=== PATIENT | female | born 1955 | race Caucasian/White ===

== ENCOUNTER → 2016-12-26 | Outpatient (CLI) | payer OTHER ==
[~2016-12-26] MED LIST: ANT25 PO; ASPCH81 PO; CALC-20 PO; LISI-461 PO; MULT-506 PO; [UNRECOGNIZED DRUG - OTHER]
[2016-12-26 13:37] LABS: BASO % 0.4 %; BASO ABS # 0.03 K/uL (0-0.2); COMPLETE YES; EOS % 1.9 %; HEMATOCRIT 41.8 % (37-47); IG% 0.1 %; LYMPH % 31.3 %; LYMPH ABS # 2.35 K/uL (1.2-3.4); MEAN CELL VOLUME 89.3 fL (80-100); MEAN CORPUSCULAR HEMOGLOBIN 30.3 pg (25-34); MEAN PLATELET VOLUME 10.6 fL (7.4-10.4); MONO % 9.9 %; NEUT % 56.4 %; PLATELET COUNT 409 K/uL (130-400); RED BLOOD COUNT 4.68 M/uL (4.2-5.4)
[2016-12-26 14:02] LABS: ESTIMATED AVERAGE GLUCOSE 123 mg/dl; HA1C FLAG Normal (Normal)
[2016-12-26 14:11] LABS: ALT/SGPT 28 U/L (12-78); BLOOD UREA NITROGEN 15 mg/dl (7-18); BUN/CREATININE RATIO 22.6 (10-20); CALCIUM 9.9 mg/dl (8.5-10.1); CARBON DIOXIDE 30 mmol/L (21-32); CHLORIDE 105 mmol/L (98-107); CHOLESTEROL 240 mg/dl (0-200); CREATININE 0.66 mg/dl (0.60-1.20); GLUCOSE 88 mg/dl (70-99); POTASSIUM 4.2 mmol/L (3.5-5.1); SODIUM 141 mmol/L (136-145); TRIGLYCERIDES 279 mg/dl (0-150); VERY LOW DENSITY LIPOPROT CALC 56 mg/dl
[2016-12-26 14:20] LABS: ALB/GLOB RATIO 1.1 (0.9-2); ALKALINE PHOSPHATASE 90 U/L (45-117); AST/SGOT 15 U/L (15-37); CHOLESTEROL/HDL RATIO 5.9; HDL CHOLESTEROL 41 mg/dl; LDL CHOLESTEROL CALCULATED 143 mg/dl
== END | disposition home or self-care (01) ==
LOC: C.LABBC 10:40
PROVIDERS: ATTEND Internal Medicine
DX: E78.1 Pure hyperglyceridemia (principal); E78.5 Hyperlipidemia, unspecified

== ENCOUNTER → 2016-12-28 | Outpatient (CLI) | payer OTHER ==
--- NOTE | 2016-12-28 08:51 | DIAGNOSTIC IMAGING REPORT ---
ABDOMEN COMPLETE (US) CLINICAL HISTORY: Epigastric pain. COMPARISON STUDY: No previous studies for comparison. FINDINGS: Hepatic echogenicity is increased. Note is made of a 6.2 x 5.1 x 5.2 cm anechoic left hepatic lobe lesion with enhanced through transmission consistent with a cyst. There is no biliary ductal dilatation status post cholecystectomy. The pancreatic body is normal. The head and tail are slightly obscured. The size of the spleen is normal. There is no hydronephrosis. No calculi or renal masses are identified by sonography. The right kidney measures 12.1 cm and the left measures 11.8 cm. Caliber of the abdominal aorta is normal. Visualized portions of the IVC are patent. IMPRESSION: 1. No biliary ductal dilatation status post cholecystectomy. 2. Fatty liver. 3. 6.2 cm left hepatic lobe cyst. 4. No hydronephrosis. Electronically signed by: Pedrito Kennedy M.D. 12/28/2016 8:50 AM Dictated Date/Time: 12/28/2016 8:47 AM
== END | disposition home or self-care (01) ==
LOC: C.ULTRBC 07:59
PROVIDERS: ATTEND Internal Medicine
DX: R10.13 Epigastric pain (principal)

== ENCOUNTER → 2017-01-14 | Outpatient (CLI) | payer OTHER ==
[~2017-01-14] MED LIST changes: +OPTIRAY 320 IV PRN
--- NOTE | 2017-01-14 10:35 | DIAGNOSTIC IMAGING REPORT ---
CT LIVER (ABDOMEN) COMBO CT DOSE: 1730.61 mGycm CLINICAL HISTORY: Mid epigastric pain. Large hepatic cyst. TECHNIQUE: Unenhanced images were obtained through the liver. The patient was scanned in a dynamic helical fashion during intravenous administration of 93 cc Optiray 320. Arterial phase and portal phase imaging was performed. COMPARISON STUDY: Abdominal ultrasound dated 12/28/2016 FINDINGS: There are mild basilar atelectatic changes. There is hepatic steatosis. There is a 6 cm left lobe hepatic cyst. There are several too small to characterize subcentimeter hypodensities within the right hepatic lobe possibly representing additional tiny cysts or biliary hamartomas. Portal vein appears patent. The gallbladder surgically absent. No splenic abnormalities are visualized. No pancreatic masses are visualized. No adrenal masses are visualized. No renal masses are visualized. The appendix appears normal. There is no evidence of abdominal aortic dilatation. IMPRESSION: 1. Hepatic steatosis 2. Surgically absent gallbladder 3. 6 cm left lobe hepatic cyst Electronically signed by: Shailesh Vazquez M.D. 01/14/2017 10:33 AM Dictated Date/Time: 01/14/2017 10:29 AM
== END | disposition home or self-care (01) ==
LOC: C.CTS 09:57
PROVIDERS: ATTEND Physician Assistant
DX: K76.89 Other specified diseases of liver (principal); R10.13 Epigastric pain; K76.0 Fatty (change of) liver, not elsewhere classified; Z90.49 Acquired absence of other specified parts of digestive tract

== ENCOUNTER → 2017-02-13 | Outpatient (CLI) | payer OTHER ==
[~2017-02-13] MED LIST changes: -OPTIRAY 320 IV PRN
--- NOTE | 2017-02-13 12:31 | DIAGNOSTIC IMAGING REPORT ---
TWO VIEW CHEST CLINICAL HISTORY: Preoperative examination. FINDINGS: PA and lateral chest radiographs are compared to study dated 01/08/2015. The cardiomediastinal silhouette is unremarkable. There is mild atherosclerotic calcification of the thoracic aorta. Chronic interstitial thickening is similar to previous. Linear atelectasis versus scarring is noted at the left lung base. The lungs and pleural spaces are otherwise clear. There is no pneumothorax. The skeletal structures are osteopenic. The bony thorax appears intact. IMPRESSION: No active disease in the chest. Electronically signed by: Tavon England M.D. 02/13/2017 12:30 PM Dictated Date/Time: 02/13/2017 12:29 PM
[2017-02-13 13:36] LABS: BASO % 0.2 %; BASO ABS # 0.02 K/uL (0-0.2); COMPLETE YES; EOS % 1.5 %; HEMATOCRIT 42.7 % (37-47); IG% 0.2 %; LYMPH % 27.6 %; LYMPH ABS # 2.24 K/uL (1.2-3.4); MEAN CELL VOLUME 90.7 fL (80-100); MEAN CORPUSCULAR HEMOGLOBIN 30.1 pg (25-34); MEAN CORPUSCULAR HGB CONC 33.3 g/dl (32-36); MEAN PLATELET VOLUME 10.2 fL (7.4-10.4); MONO % 8.3 %; NEUT % 62.2 %; PLATELET COUNT 429 K/uL (130-400); RED BLOOD COUNT 4.71 M/uL (4.2-5.4); WHITE BLOOD COUNT 8.12 K/uL (4.8-10.8)
[2017-02-13 13:54] LABS: PARTIAL THROMBOPLASTIN RATIO 1.1; PROTHROMBIN TIME (PATIENT) 10.3 SECONDS (9.0-12.0)
[2017-02-13 14:29] LABS: ALT/SGPT 29 U/L (12-78); BLOOD UREA NITROGEN 14 mg/dl (7-18); BUN/CREATININE RATIO 20.4 (10-20); CARBON DIOXIDE 28 mmol/L (21-32); CHLORIDE 105 mmol/L (98-107); CREATININE 0.67 mg/dl (0.60-1.20); GLUCOSE 86 mg/dl (70-99); MAGNESIUM 2.4 mg/dl (1.8-2.4); POTASSIUM 4.1 mmol/L (3.5-5.1); SODIUM 141 mmol/L (136-145)
[2017-02-13 14:34] LABS: ALB/GLOB RATIO 1.1 (0.9-2); ALKALINE PHOSPHATASE 95 U/L (45-117); AST/SGOT 15 U/L (15-37)
[2017-02-15 15:27] LABS: AFP TUMOR MARKER SERUM 4.2 NG/ML (<6.1)
== END | disposition home or self-care (01) ==
LOC: C.RADBC 11:54
PROVIDERS: ATTEND Specialist
DX: K76.89 Other specified diseases of liver (principal)

== ENCOUNTER → 2017-02-20 | Outpatient (CLI) | payer OTHER | END | disposition home or self-care (01) | LOC: C.CPL 08:16 | PROVIDERS: ATTEND Specialist | DX: K76.89 Other specified diseases of liver (principal) ==

== ENCOUNTER → 2017-02-20 | Outpatient (CLI) | payer OTHER ==
--- NOTE | 2017-02-20 14:10 | MAMMOGRAPHY REPORT ---
BILATERAL DIGITAL SCREENING MAMMOGRAM TOMOSYNTHESIS WITH CAD: 02/20/2017 CLINICAL HISTORY: Routine screening. Patient has no complaints. TECHNIQUE: Breast tomosynthesis in addition to standard 2D mammography was performed. Current study was also evaluated with a Computer Aided Detection (CAD) system. COMPARISON: Comparison is made to exams dated: 10/17/2015 mammogram, 10/01/2014 mammogram, 09/11/2013 mammogram, 06/26/2012 mammogram, 06/21/2011 mammogram, and 06/19/2010 mammogram - [facility] [place] . BREAST COMPOSITION: There are scattered areas of fibroglandular density in both breasts. FINDINGS: There is stable nodularity in the lateral right breast, and superior left breast. Stable grouped punctate benign-appearing microcalcifications in the lateral left breast. No new suspicious mass, architectural distortion or cluster of microcalcifications is seen. IMPRESSION: ACR BI-RADS CATEGORY 1: NEGATIVE There is no mammographic evidence of malignancy. A 1 year screening mammogram is recommended. The p atient will receive written notification of the results. Approximately 10% of breast cancers are not detected with mammography. A negative mammographic repor t should not delay biopsy if a clinically suggestive mass is present. Leela Hernandez M.D. ay/:02/20/2017 09:30:24 Advanced Manager: Brittney LUNDY)(Johan), [facility] letter sent: Normal 1/2 BI-RADS Code: ACR BI-RADS Category 1: Negative
== END | disposition home or self-care (01) ==
LOC: C.MAMM 07:34
PROVIDERS: ATTEND Internal Medicine
DX: Z12.31 Encounter for screening mammogram for malignant neoplasm of breast (principal)

== ENCOUNTER → 2017-07-31 | Outpatient (CLI) | payer OTHER ==
[2017-07-31 13:54] LABS: ESTIMATED AVERAGE GLUCOSE 120 mg/dl; HA1C FLAG Normal (Normal)
[2017-07-31 14:04] LABS: ALB/GLOB RATIO 1.1 (0.9-2); ALKALINE PHOSPHATASE 105 U/L (45-117); ALT/SGPT 29 U/L (12-78); AST/SGOT 13 U/L (15-37); BLOOD UREA NITROGEN 11 mg/dl (7-18); BUN/CREATININE RATIO 15.5 (10-20); CARBON DIOXIDE 27 mmol/L (21-32); CHLORIDE 105 mmol/L (98-107); CHOLESTEROL 240 mg/dl (0-200); CHOLESTEROL/HDL RATIO 5.5; CREATININE 0.71 mg/dl (0.60-1.20); GLUCOSE 103 mg/dl (70-99); HDL CHOLESTEROL 44 mg/dl; LDL CHOLESTEROL CALCULATED 147 mg/dl; POTASSIUM 4.2 mmol/L (3.5-5.1); SODIUM 140 mmol/L (136-145); TRIGLYCERIDES 246 mg/dl (0-150); VERY LOW DENSITY LIPOPROT CALC 49 mg/dl
== END | disposition home or self-care (01) ==
LOC: C.LABBC 09:52
PROVIDERS: ATTEND Internal Medicine
DX: R73.01 Impaired fasting glucose (principal)

== ENCOUNTER → 2017-10-24 | Outpatient (CLI) | payer OTHER ==
[2017-10-24 14:01] LABS: HEMOGLOBIN A1C 5.5 % (4.5-5.6)
[2017-10-24 14:04] LABS: ALBUMIN 4.1 gm/dl (3.4-5.0); ALT/SGPT 29 U/L (12-78); BLOOD UREA NITROGEN 16 mg/dl (7-18); CALCIUM 9.2 mg/dl (8.5-10.1); CARBON DIOXIDE 27 mmol/L (21-32); CHOLESTEROL 153 mg/dl (0-200); GLUCOSE 103 mg/dl (70-99); POTASSIUM 3.9 mmol/L (3.5-5.1); SODIUM 139 mmol/L (136-145)
[2017-10-24 14:07] LABS: ALKALINE PHOSPHATASE 101 U/L (45-117); AST/SGOT 11 U/L (15-37); LDL CHOLESTEROL CALCULATED 77 mg/dl; TOTAL PROTEIN 7.9 gm/dl (6.4-8.2)
== END | disposition home or self-care (01) ==
LOC: C.LABBC 09:37
PROVIDERS: ATTEND Internal Medicine
DX: E78.5 Hyperlipidemia, unspecified (principal); I10 Essential (primary) hypertension; R73.01 Impaired fasting glucose; E78.1 Pure hyperglyceridemia; K76.89 Other specified diseases of liver

== ENCOUNTER 2017-11-17 18:15 | Emergency (ER) | payer OTHER ==
[~2017-11-17] VITALS: Ht 167.6 cm; Wt 90.4 kg
[2017-11-17 18:20] VITALS: TEMP 36.3; Ht 167.6 cm; Wt 90.4 kg
[2017-11-17] MEDS ORDERED: KETOROLAC TROMETHAMINE 60 MG/2 ML VIAL IM STA (18:47)
[2017-11-17] MEDS ORDERED: LPT10 PO (18:52)
[2017-11-17] MEDS ORDERED: ASPI81TA28 PO (18:52)
[2017-11-17] MEDS ORDERED: CHOL1000 PO (18:52)
[2017-11-17] MEDS ORDERED: LISI-461 PO (18:52)
[2017-11-17] MEDS ORDERED: COEN1CAP17 PO (18:52)
[2017-11-17] MEDS ORDERED: FLAX1CAP11 PO (18:52)
--- NOTE | 2017-11-17 19:45 | DIAGNOSTIC IMAGING REPORT ---
L HUMERUS MIN 2 VIEWS ROUTINE CLINICAL HISTORY: left humerus pain s/p fall COMPARISON: None FINDINGS: These images demonstrate a proximal left humeral fracture which involves the greater tuberosity which is mildly displaced. Fracture also likely extends through the humeral neck. Fracture appears acute to subacute. No additional left humeral fractures are identified. Alignment of the left acromioclavicular joint appears anatomic. There may be a previous distal left clavicular resection. IMPRESSION: Mildly displaced proximal left humeral fracture that extends through the greater tuberosity which is mildly displaced. Fracture appears acute to subacute. Electronically signed by: Pedrito Kennedy M.D. 11/17/2017 7:43 PM Dictated Date/Time: 11/17/2017 7:41 PM
--- NOTE | 2017-11-17 19:46 | DIAGNOSTIC IMAGING REPORT ---
L PELVIS/UNILATERAL HIP 2-3VIEWS CLINICAL HISTORY: left hip pain/contusion, fall COMPARISON: None FINDINGS: The sacroiliac joints and symphysis pubis are intact. There is no acute fracture within the pelvis or hips. There is mild arthritis of both hips. IMPRESSION: No acute fracture within the pelvis or hips. Electronically signed by: Pedrito Kennedy M.D. 11/17/2017 7:45 PM Dictated Date/Time: 11/17/2017 7:43 PM
[2017-11-17] MEDS ORDERED: TRAMADOL HCL 50 MG HOME PACK PO STA (20:37)
[2017-11-17] MEDS ORDERED: TRAM-10 PO (20:39)
--- NOTE | 2017-11-17 20:42 | EMERGENCY ROOM VISIT NOTE ---
ED Visit Note First contact with patient: 18:31 CHIEF COMPLAINT: Shoulder pain HISTORY OF PRESENT ILLNESS: This 62-year-old female patient presents to the emergency department, ambulatory, complaining of pain in the left upper arm which began after she slipped and fell on her deck this morning at approximately 930. There is significant limitation of motion of the arm because of the pain. The pain is moderate, constant and increases with motion of the hand and arm. The patient states the pain is throbbing and sharp and 9/ 10. The patient has taken Tylenol and Aleve with mild relief of the pain. The patient does have history of rotator cuff tear in the same shoulder. No numbness or tingling. No neck or back pain. No chest pain or shortness of breath. No abdominal pain or nausea/vomiting. No cough. The patient did place the arm in a sling for comfort. She was seen at urgent care, but x-rays were unable to be obtained due to the patient's inability to move her arm and the patient was sent here. The patient states she did hit her head slightly, but there was no loss of consciousness, amnesia, confusion, nausea, vomiting, weakness, paresthesias, neck pain, visual disturbances, or other concerning symptoms. She does report some mild left hip pain and bruising, which she describes as a "soft tissue injury". The patient does not take blood thinners. REVIEW OF SYSTEMS: A 6 system review of systems was performed with positives and pertinent negatives in the HPI. ALLERGIES: None PMH: Hypertension, hyperlipidemia SOCIAL HISTORY: The patient lives locally with family. She denies drug, alcohol , tobacco use. PHYSICAL EXAM: Vital Signs: Reviewed nurse's notes, vital signs stable. GENERAL : This is a 62-year-old white female, in no acute distress, but appears to be in pain, well-developed, well-nourished. HEENT: Normocephalic, atraumatic. PERRLA. No nystagmus noted. No cracked, loose, or missing teeth. No hemotympanum. No Battles' sign or [place] eyes. No facial or head tenderness on palpation. No obvious contusion or bleeding noted. MUSCULOSKELETAL: There is no deformity in the contour of the left shoulder and there are no obvious tai deformities noted. There is no sulcus sign. There is tenderness over the humeral head. There is no scapular tenderness noted. The patient's range of motion is limited due to pain. Supraspinatus strength 3/5. There is no clavicle tenderness. No tenderness of the humerus, elbow, wrist, or hand. Sales Strategy Manager strength 5 /5. Radial pulse 2+. There is tenderness on palpation of the posterior left hip joint with contusion noted over the left buttock. Quadriceps and hamstring muscles 5/5. Full ROM at the right hip and the patient is able to weight bear. NECK: No tenderness to palpation over the cervical spine. HEART: Regular rate and rhythm without murmurs gallops or rubs. LUNGS: Clear to auscultation bilaterally without wheezes, rales or rhonchi. No accessory muscle use. No retractions. NEURO: The patient is alert and oriented to person, place, and time. Normal sensation to light and sharp touch. Capillary refill less than 2 seconds. RADIOLOGY: L PELVIS/UNILATERAL HIP 2-3VIEWS CLINICAL HISTORY: left hip pain/contusion, fall COMPARISON: None FINDINGS: The sacroiliac joints and symphysis pubis are intact. There is no acute fracture within the pelvis or hips. There is mild arthritis of both hips. IMPRESSION: No acute fracture within the pelvis or hips. Electronically signed by: Pedrito Kennedy M.D. 11/17/2017 7:45 PM Dictated Date/Time: 11/17/2017 7:43 PM L HUMERUS MIN 2 VIEWS ROUTINE CLINICAL HISTORY: left humerus pain s/p fall COMPARISON: None FINDINGS: These images demonstrate a proximal left humeral fracture which involves the greater tuberosity which is mildly displaced. Fracture also likely extends through the humeral neck. Fracture appears acute to subacute. No additional left humeral fractures are identified. Alignment of the left acromioclavicular joint appears anatomic. There may be a previous distal left clavicular resection. IMPRESSION: Mildly displaced proximal left humeral fracture that extends through the greater tuberosity which is mildly displaced. Fracture appears acute to subacute. Electronically signed by: Pedrito Kennedy M.D. 11/17/2017 7:43 PM Dictated Date/Time: 11/17/2017 7:41 PM EMERGENCY DEPARTMENT COURSE: I examined the patient. The patient was given 60mg Toradol IM. An X-ray of the left humerus and left hip were reviewed by myself and radiologist as above. I did consult with Dr. Domínguez regarding the fracture and follow-up. He was agreeable to seeing the patient in the office tomorrow and did recommend a sling and swath. She was given a sling which has the strap for swath. The patient was offered narcotics, but states she does not do well with them and requests other pain medication. She does not have a seizure history and will be given Tramadol. PDMP consulted with no suspicious findings noted. I attest that I have personally reviewed the patient's current medication list. Blood Pressure Screening: Patient was found to have a slightly elevated blood pressure due to circumstances. I do not believe that the patient requires hypertension monitoring. Differential diagnosis includes: fracture, contusion, sprain, strain, tear, malignancy, and others DIAGNOSIS: Left humeral head fracture Problem List Medical Problems: (1) Cellulitis Status: Resolved (2) Herniated disc Status: Resolved (3) Migraine Status: Chronic (4) Sleep apnea Status: Chronic (5) UTI (urinary tract infection) Status: Resolved Current/Historical Medications Scheduled Aspirin (Aspirin Ec), 81 MG PO DAILY Atorvastatin (Lipitor), 10 MG PO DAILY Calcium Carbonate-Vitamin D (Calcium 600 + D), 1 TAB PO DAILY Cholecalciferol (Vitamin D3), 1 TAB PO DAILY Coenzyme Q10 (Ubidecarenone) (Co Q 10), 1 CAP PO DAILY Flaxseed (Linseed) (Flax Seed Oil), 1 CAP PO DAILY Lisinopril (Lisinopril), 10 MG PO DAILY Multivitamin (Multivitamin), 1 TAB PO DAILY Scheduled PRN Tramadol (Ultram), 50 MG PO Q4-6H PRN for Pain Allergies Coded Allergies: No Known Allergies (Verified , 06/01/03) Vital Signs Date Time Temp Pulse Resp B/P (MAP) Pulse Ox O2 Delivery O2 Flow Rate FiO2 11/17/17 20:07 108 16 177/101 93 Room Air 11/17/17 18:20 36.3 103 20 95 Room Air Medications Administered Medications (Trade) Dose Ordered Sig/Vivian Route Start Time Stop Time Status Last Admin Dose Admin Ketorolac Tromethamine (Toradol Inj) 60 mg NOW STAT IM 11/17/17 18:47 11/17/17 18:49 DC 11/17/17 19:15 60 MG Departure Information Impression Primary Impression: Humeral head fracture Dispostion Home / Self-Care Condition GOOD Prescriptions Tramadol (Ultram) 50 Mg Tab 50 MG PO Q4-6H Y for Pain, #15 TAB Prov: Debra Sma, EVE 11/17/17 Referrals Azar Howard M.D. (PCP) Azar Domínguez M.D. Patient Instructions ED Fx Upper Ext, [facility] Additional Instructions ORTHOPEDIC INSTRUCTIONS: Tramadol 50mg: Take 1 pill every four to six hours as needed for breakthrough pain. Avoid alcohol, operating machinery or dangerous equipment, working on ladders or roofs, DRIVING, or situations where being under the influence may be dangerous. It is recommended to use an [id number] stool softener such as Colace, 100mg twice daily while taking this medication to avoid constipation. Ibuprofen(Motrin, Advil) may be used for fever or pain. Use 600mg every six hours as needed. Take with food. Avoid using more than 2400mg in a 24 hour period. Do not use 2400mg per day for more than three consecutive days without physician direction. Prolonged inappropriate use can lead to stomach upset or ulcers. (AND/OR) Acetaminophen(Tylenol) may be used for fever or pain. Use 1000mg every six hours as needed. Avoid using more than 3000mg in a 24 hour period. Ice compresses for 20 minutes at a time four times daily for 2-3 days. Use the sling as instructed. Rest and elevate your injury. Return to the ER immediately for any numbness, tingling, severe pain, extreme swelling in the extremity or as needed. Call [facility], [phone], tomorrow morning to arrange follow up for your injury. Follow-up with your primary care physician in 2 to 3 days for a recheck of your current condition. Problem Qualifiers Primary Impression: Humeral head fracture Encounter type: initial encounter Fracture type: closed Laterality: left Qualified Codes: S42.292A - Other displaced fracture of upper end of left humerus, initial encounter for closed fracture
[2017-11-17 20:49] VITALS: BP 179/103; PULSE 109; O2SAT 94
== END 2017-11-17 20:49 | disposition home or self-care (01) ==
LOC: C.EDB 18:19 → C.EDD 20:49
DX: S42.292A Other displaced fracture of upper end of left humerus, initial encounter for closed fracture (principal); S70.02XA Contusion of left hip, initial encounter; W01.0XXA Fall on same level from slipping, tripping and stumbling without subsequent striking against object, initial encounter; Y92.008 Other place in unspecified non-institutional (private) residence as the place of occurrence of the external cause; I10 Essential (primary) hypertension; E78.5 Hyperlipidemia, unspecified; Z79.82 Long term (current) use of aspirin

== ENCOUNTER 2024-08-05 13:48 | Inpatient (IN) ==
[2024-08-05] MEDS: cefTRIAXone SODIUM 2,000 MG/50 ML BAG IV STA (14:54)
[2024-08-05 14:57] LABS: Basophils # (auto) 0.04 K/uL (0.00-0.20); Basophils % (auto) 0.2 %; Hematocrit (blood only) 39.9 % (37.0-47.0); Hemoglobin 13.8 g/dl (12.0-16.0); Immature Granulocytes # (auto) 0.16 K/uL (0.01-0.20); Immature Granulocytes % (auto) 0.9 %; Lymphocytes # (auto) 1.16 K/uL (1.20-3.40); Lymphocytes % (auto) 6.5 %; Mean Corpuscular Hemoglobin 31.4 pg (25.0-34.0); Mean Corpuscular Hgb Conc 34.6 g/dL (32.0-36.0); Mean Corpuscular Volume 90.9 fL (80.0-100.0); Mean Platelet Volume 10.3 fL (9.4-12.4); Monocytes # (auto) 2.06 K/uL (0.11-0.59); Monocytes % (auto) 11.6 %; Neutrophils # (auto) 14.38 K/uL (1.40-6.50); Neutrophils % (auto) 80.8 %; Platelet Count 308 K/uL (130-400); RDW Coefficient of Variation 14.3 % (11.5-14.5); RDW Standard Deviation 47.7 fL (36.4-46.3); Red Blood Count 4.39 M/uL (4.20-5.40)
[2024-08-05 15:00] LABS: INR 1.1 (0.9-1.1); Partial Thromboplastin Ratio 1.1; Partial Thromboplastin Time 29 Seconds (21-31); Prothrombin Time 11.8 Seconds (9.0-12.0)
[2024-08-05 15:10] LABS: Albumin Level 4.1 gm/dl (3.4-5.0); Anion Gap 11 (3-11); Calcium 9.2 mg/dl (8.6-10.3); Carbon Dioxide 24 mmol/L (21-32); Chloride 97 mmol/L (98-107); Magnesium 1.9 mg/dl (1.7-2.4); Potassium 3.9 mmol/L (3.5-5.1); Sodium 132 mmol/L (136-145)
[2024-08-05 15:16] LABS: Alanine Aminotransferase 33 U/L (7-52); Albumin Globulin Ratio 1.3 (0.9-2); Alkaline Phosphatase 106 U/L (34-104); Aspartate Aminotransferase 26 U/L (13-39); BUN Creatinine Ratio 21.3 (10-20); Blood Urea Nitrogen 19 mg/dl (6-23); Globulin 3.2 gm/dl (2.5-4.0); Glucose 287 mg/dl (70-99(Fasting)); Total Protein 7.3 gm/dl (6.0-8.3)
[2024-08-05 15:18] LABS: Troponin I High Sensitivity 21.6 pg/ml (0-14)
[2024-08-05] MEDS: SODIUM CHLORIDE 0.9% 1,000 ML IV ONE ×2 (15:24→19:53)
[2024-08-05] MEDS: OPTIRAY 320 100ml IV ONE (15:41)
[2024-08-05 15:42] LABS: Appearance Urine Turbid (Clear); Bacteria Urine Automated 4+ (None Seen); Bilirubin Urine 1+ (Negative); Blood Urine 3+ (Negative); Color Urine Orange; Glucose Urine UA 2+ (Negative); Ketones Urine 1+ (Negative); Leukocyte Esterase Urine 3+ (Negative); Nitrite Urine Positive (Negative); Protein Urine 3+ (Negative); RBC Urine Automated >20 /hpf (0-2); Specific Gravity Urine 1.035 (1.000-1.030); Urobilinogen Urine Negative (Negative); WBC Urine Automated >50 /hpf (0-5)
--- NOTE | 2024-08-05 16:17 | XRay Report ---
EXAM: Radiograph of the Chest 1 View INDICATION: Sepsis. TECHNIQUE: Frontal view of the chest. COMPARISON: 03/08/2020 FINDINGS: Lungs and pleural spaces: Very minimal scarring left base unchanged. No consolidation or pulmonary edema. No pleural effusion or pneumothorax. Heart: Shape and configuration within normal limits allowing for technique. Mediastinum: Normal contour. Bones/joints: Degenerative changes noted throughout the spine. No acute osseous abnormality seen. Soft tissues: No abnormality noted. No radiopaque foreign body noted. Upper abdomen: No abnormality noted. IMPRESSION: No acute cardiopulmonary disease. ACT 112: Negative or not required by law. Electronically signed by Ngoc Roque 08-05-2024 4:17 PM
--- NOTE | 2024-08-05 16:30 | CT Scan Report ---
ABDOMEN AND PELVIS CT WITH IV CONTRAST CT DOSE: 1389.26 mGy.cm HISTORY: Acute lower abdominal pain with urinary tract infection and fever septic, LLQ pain, diverti c, pyelo TECHNIQUE: Multiaxial CT images of the abdomen and pelvis were performed following the IV administrat ion of 94 cc of Optiray, A dose lowering technique was utilized adhering to the principles of ALARA. COMPARISON STUDY: 01/14/2017 FINDINGS: Clear lung bases. No pneumoperitoneum. Unremarkable spleen, pancreas and adrenal glands. Ch olecystectomy. Hepatomegaly with hepatic steatosis. Small left hepatic lobe cysts. Patent portal vein . Unremarkable right kidney. Striated nephrogram of the left kidney with perinephric stranding. There i s still thickening of the renal collecting system and ureter on the left. No significant hydronephros is. Urinary bladder wall thickening with partial distention. Atherosclerosis of the aorta. No lymphad enopathy. No bowel obstruction or bowel wall thickening. Normal appendix. No acute fracture. IMPRESSION: 1. Findings compatible with cystitis and left-sided pyelonephritis, ureteritis and pyelitis. 2. No urolith or hydronephrosis. 3. No bowel obstruction or bowel wall thickening. 4. Hepatic steatosis. ACT 112: Negative or not required by law. The above report was generated using voice recognition software. It may contain grammatical, syntax o r spelling errors. Electronically signed by: Steve Manning M.D. 08/05/2024 4:27 PM
--- NOTE | 2024-08-05 16:45 | History & Physical Report ---
Date of Service August 05, 2024 Assessment & Plan (1) Sepsis: Plan: Likely source urine/kidney, fluids given in ED = 1L NSS - Admit - SIRS: HR > 90; WBC > 12k - BP normotensive - CBC leukocytosis 17.80, with neutrophil predominance at 14.3 - CMP with sodium 132 (corrected 136), chloride 97, BUN/creatinine ratio 23.1, glucose 287 - Lactate 1.6, Mg 1.8, Ca 9.2 - PT/INR WNL - Procal 0.15 - Pending blood cultures - EKG sinus tachycardia HR ~ 120 bmp - CXR without acute cardiopulmonary findings - CT revealing cystitis with left-sided pyelonephritis, ureteritis, pyelitis, as well as hepatic steatosis - Fluids given include 1 L NSS; not hypotensive and lactate not greater than 4 so will defer further IV fluids at this time - Continue ceftriaxone 1 g daily for UTI/pyelonephritis treatment (2) UTI (urinary tract infection): Plan: Symptoms of dysuria, vaginal itching - No documented history of Pseudomonas - UA showing turbid urine, SG 1.035, 3+ protein, 2+ glucose, 1+ ketones, 3+ blood, positive nitrate, 1+ bilirubin, 3+ LE, presence of WBC, RBC, hyaline cast epithelial cells, 4+ bacteria - CTAP cystitis and left-sided pyelonephritis, ureteritis, pyelitis, hepatic steatosis - Pending urine culture - ABX as above (3) Pyelonephritis of left kidney: Plan: Identified on CTAP - Continue antibiotics as above - CVA tenderness L side (4) Type 2 diabetes mellitus: Plan: No insulin at baseline - Most recent A1C 06/15 @ 6.9% - On metformin at home; hold while inpatient - SSI with target BSG range 110-140mg/dL, CF 30, carb ratio 15 - T2DM diet - BSG ACHS - Adjust regimen as needed (5) Moderate obstructive sleep apnea: Plan: CPAP (6) Thrombocytosis: Plan: Platelets 308 - Repeat CBC am; will monitor Plan HLD- Atorvastatin HTN- Lisinipril-HCTZ Mood- Duloxetine Dispo: Admit VTE prophylaxis: SCDs Code: Full Admission and Anticipated Discharge Date Admission Date: 08/05/2024 History of Present Illness Chief Complaint: UTI sx Primary Care Provider: Arleth Lorenzo DO Patient is a 69-year-old female presenting for UTI symptoms to include fever, dysuria, and vaginal itching. Was at outpatient appointment and referred to ED. ED course: CBC- WBC 17.80 with neutrophil predominance 14.38, RDW 47.7; PT/INR WNL; CMP- Na 132, chloride 97, BUN/creatinine 21.3, alk phos 106; lactate 1.6, procalcitonin 1.15; UA turbid appearance, specific gravity 1.035, 3+ protein, 2+ glucose, 1+ ketones, 3+ blood, positive nitrate, 1+ bilirubin, 2+ LE, and presence of WBC, HPC, hyaline cast, epithelial cells, and 4+ bacteria.; CXR no acute cardiopulmonary disease; CTAP findings compatible with cystitis and left- sided pyelonephritis, ureteritis and pyelitis, urolith or hydronephrosis, no bowel obstruction or bowel thickening, presence of hepatic steatosis. Patient tachycardic on arrival, but normotensive and without fever. Patient is a 69-year-old female with PMHx T2DM, SHIRA, thrombocytosis, migraine, fibromyalgia, hypertension, hyperlipidemia, and unstable gait presenting for onset of UTI symptoms to include dysuria and vaginal itching x 1 week. Has an associated headache, fever of Tmax 101 this morning, as well as very mild pain in low back pain that spans across both sides. States she has not had hematuria and nausea/vomiting. Has been utilizing Tylenol and Aleve [id number] to manage pain. States that this has not helped much. Has not taken a.m. medications. Never had this happen before. Please see Dr. Kathleen's attestation for adjustments/additions to treatment plan. Allergies Allergy/AdvReac Type Severity Reaction Status Date / Time codeine AdvReac Mild Dizziness Verified 08/05/24 13:03 niacin AdvReac Mild flushing Verified 08/05/24 13:03 Niacin Preparations AdvReac Mild flushing Verified 08/05/24 13:03 feeling Home Medications Medication Instructions Recorded Confirmed Type calcium 600 mg (as 1 tab PO QAM 07/19/18 08/05/24 History carbonate)-vitamin D3 5 mcg (200 unit) tablet (Calcium 600 + D(3)) flaxseed oil 1,000 mg capsule 1,000 mg PO QAM 07/19/18 08/05/24 History multivitamin 1 tab PO QAM 07/19/18 08/05/24 History coQ10 (ubiquinol) 100 mg capsule 100 mg PO QAM 01/12/19 08/05/24 History CPAP Machine #1 ea 12/08/19 08/05/24 Rx cholecalciferol (vitamin D3) 125 5,000 mcg PO QAM 05/20/20 08/05/24 History mcg (5,000 unit) tablet (Vitamin D3) magnesium 200 mg tablet 200 mg PO QAM 12/11/23 08/05/24 History alendronate 70 mg tablet See Rx Instructions .Route 01/08/24 08/05/24 Rx .COMPLEX #12 tabs metformin 500 mg tablet,extended See Rx Instructions .Route 01/27/24 08/05/24 Rx release 24 hr .COMPLEX #90 tabs atorvastatin 10 mg tablet See Rx Instructions .Route 04/02/24 08/05/24 Rx .COMPLEX #90 tabs lisinopril 20 See Rx Instructions .Route 04/02/24 08/05/24 Rx mg-hydrochlorothiazide 12.5 mg .COMPLEX #90 tabs tablet duloxetine 30 mg capsule,delayed 30 mg PO DAILY #90 caps 06/19/24 08/05/24 Rx release icosapent ethyl 1 gram capsule 2 g PO DAILY 06/30/24 08/05/24 History (Vascepa) Past Med/Surg History Problem List (Updated 08/05/24 @ 19:21 by Roderick Frazier MD) Acute pyelonephritis (Acute) Sepsis (Acute) Acute pyelitis (Acute) Pyelonephritis of left kidney Sepsis Unstable gait Recurrent falls Moderate obstructive sleep apnea Lumbosacral radiculopathy Osteoarthritis of right knee Situational depression Type 2 diabetes mellitus Osteoporosis, unspecified Thrombocytosis Nocturnal hypoxemia (Chronic) Migraine (Chronic) Neuropathy Fibromyalgia (Chronic) Sleep apnea (Chronic) cpap HTN (hypertension) (Chronic) Hyperlipidemia (Chronic) Medical History Neuroforaminal stenosis of lumbar spine Callus of foot Trigger finger Metabolic syndrome EKG abnormalities Arthritis History of anemia Diabetes mellitus, type 2 Migraine rare Surgical History S/P trigger finger release History of tonsillectomy and adenoidectomy History of D&C History of total abdominal hysterectomy and bilateral salpingo-oophorectomy History of section X 2 Ganglion cyst of wrist removed History of repair of rotator cuff rt/left History of discectomy lumbar History of colonoscopy History of cholecystectomy Liver cyst REMOVED (BENIGN) History of tooth extraction Family History Father Family history of diabetes mellitus Myocardial infarction Brother Family history of diabetes mellitus Sister Ovarian cancer Family history of diabetes mellitus Mother Family history of esophageal cancer Myocardial infarction Other No family history of adverse response to anesthesia Denies family history of Prostate cancer Breast cancer Lung cancer Colorectal cancer Social History Smoking Status: Never smoker Tobacco Type: Declines Second Hand Exposure: No; Do You Dip or Chew Tobacco: No; Tobacco Cessation Education Requested by Patient: No Hx Alcohol Use: No Hx Substance Use: No Preferred Language: Trinidadian Communication Ability: Effective Visual Impairment: Limited Hearing Ability: Hard of Hearing Organ Fixer Required: No Beliefs That Will Affect Care: None marital status: Current Living Situation: Spouse Current Living Situation Comment: current occupational status: retired How many Children do You have: 4 Other Information That Helps Us Care for You: No Feels Safe at Home: Yes Safety Concerns: Feels Safe At This Time Childhood Exposure to Second-Hand Smoke: Yes Diet: regular caffeine: Yes (1 cup of coffee daily, sometimes tea ) during the past year weight has: remained stable Dental Care, Regularly: Yes Physical Activity Frequency: Does not Exercise Seatbelt Use: always Sunscreen Use: Yes Assistive Devices: CPAP Review of Systems Review of Systems: All systems reviewed & are unremarkable except as noted in Subjective Physical Exam Physical Exam: General: No acute distress Skin: Warm and dry Head: Normocephalic, atraumatic Eyes: PERRL Neck: Supple, no LAD Cardio: Tachycardia, regular rhythm, no M/G/R, S1 and S2 normal Resp: Chest wall symmetric, normal respiratory effort; Lungs CTA in all lobes bilaterally, no wheezes, rales, or rhonchi Abdomen: Soft, symmetric, nontender; no distention; No masses or hepatosplenomegaly; CVA tenderness L side MSK: No deformities; pulses palpable and equal; no edema. Neuro: Awake, alert; Psych: Appropriate mood and affect; good judgement and insight. present in room at time of visit. Results & Data Results & Data Vital Signs (Past 12 Hours) Vital Signs Temp Pulse Resp BP Pulse Ox O2 Del Method 08/05/24 15:58 113 H 08/05/24 15:06 117 H 93 08/05/24 15:00 133/75 08/05/24 15:00 133/75 08/05/24 14:39 Room Air 08/05/24 14:39 Room Air 08/05/24 14:09 36.6 C 127 H 12 136/82 98 Room Air Laboratory Results 08/05/24 15:17 Urine Culture - Pending Urine,Clean Catch 08/05/24 14:52 Aerobic Blood Culture - Pending Blood Anaerobic Blood Culture - Pending 08/05/24 14:00 Aerobic Blood Culture - Pending Blood Anaerobic Blood Culture - Pending 08/05/24 08/05/24 08/05/24 16:24 15:17 14:30 WBC 17.80 H RBC 4.39 Hgb 13.8 Hct 39.9 MCV 90.9 MCH 31.4 MCHC 34.6 RDW Std Deviation 47.7 H RDW Coeff of [place] 14.3 Plt Count 308 MPV 10.3 Immature Gran % (Auto) 0.9 Neut % (Auto) 80.8 Lymph % (Auto) 6.5 [place] % (Auto) 11.6 Eos % (Auto) 0.0 Baso % (Auto) 0.2 Neut # (Auto) 14.38 H Lymph # (Auto) 1.16 L [place] # (Auto) 2.06 H Eos # (Auto) 0.00 Baso # (Auto) 0.04 Immature Gran # (Auto) 0.16 PT 11.8 INR 1.1 APTT 29 PTT Ratio 1.1 Sodium 132 L Potassium 3.9 Chloride 97 L Carbon Dioxide 24 Anion Gap 11 BUN 19 Creatinine 0.89 Est Cr Clr Drug Dosing Not Reportable eGFR 70.14 BUN/Creatinine Ratio 21.3 H Glucose 287 H Lactate 1.6 2.9 H* Calcium 9.2 Magnesium 1.9 Total Bilirubin 1.0 AST 26 ALT 33 Alkaline Phosphatase 106 H Troponin I High Sens 21.6 H Total Protein 7.3 Albumin 4.1 Globulin 3.2 Albumin/Globulin Ratio 1.3 Procalcitonin 1.15 H Urine Color [place] Urine Appearance Turbid A Urine pH 6.0 Ur Specific [place] 1.035 H Urine Protein 3+ H Urine Glucose (UA) 2+ H Urine Ketones 1+ H Urine Blood 3+ H Urine Nitrite Positive A Urine Bilirubin 1+ H Urine Urobilinogen Negative Ur Leukocyte Esterase 3+ H Urine WBC (Auto) >50 H Urine RBC (Auto) >20 H U Hyaline Cast (Auto) 6-10 H U Epithel Cells (Auto) 6-10 H Urine Bacteria (Auto) 4+ H Diagnostic Findings Chest X-Ray 08/05/24 14:23 EXAM: Radiograph of the Chest 1 View INDICATION: Sepsis. TECHNIQUE: Frontal view of the chest. COMPARISON: 03/08/2020 FINDINGS: Lungs and pleural spaces: Very minimal scarring left base unchanged. No consolidation or pulmonary edema. No pleural effusion or pneumothorax. Heart: Shape and configuration within normal limits allowing for technique. Mediastinum: Normal contour. Bones/joints: Degenerative changes noted throughout the spine. No acute osseous abnormality seen. Soft tissues: No abnormality noted. No radiopaque foreign body noted. Upper abdomen: No abnormality noted. IMPRESSION: No acute cardiopulmonary disease. ACT 112: Negative or not required by law. Electronically signed by Ngoc Roque 08-05-2024 4:17 PM Abdomen/Pelvis CT 08/05/24 14:[address] WITH IV CONTRAST CT DOSE: 1389.26 mGy.cm HISTORY: Acute lower abdominal pain with urinary tract infection and fever septic, LLQ pain, divertic, pyelo TECHNIQUE: Multiaxial CT images of the abdomen and pelvis were performed follo wing the IV administration of 94 cc of Optiray, A dose lowering technique was utilized adhering to the principles of ALARA. COMPARISON STUDY: 01/14/2017 FINDINGS: Clear lung bases. No pneumoperitoneum. Unremarkable spleen, pancreas and adrenal glands. Cholecystectomy. Hepatomegaly with hepatic steatosis. Small left hepatic lobe cysts. Patent portal vein. Unremarkable right kidney. Striated nephrogram of the left kidney with perinephric stranding. There is still thickening of the renal collecting system and ureter on the left. No significant hydronephrosis. Urinary bladder wall thickening with partial distention. Atherosclerosis of the aorta. No lymphadenopathy. No bowel obstruction or bowel wall thickening. Normal appendix. No acute fracture. IMPRESSION: 1. Findings compatible with cystitis and left-sided pyelonephritis, ureteritis and pyelitis. 2. No urolith or hydronephrosis. 3. No bowel obstruction or bowel wall thickening. 4. Hepatic steatosis. ACT 112: Negative or not required by law. The above report was generated using voice recognition software. It may contain grammatical, syntax or spelling errors. Electronically signed by: Steve Manning M.D. 08/05/2024 4:27 PM Code Status & VTE Plan Code Status Full Supervising Physician Co-Signing Physician Notes I personally saw and examined the patient. I independently reviewed the labs, EKG, imaging, problem list, medication list, past medical history and family history. I verified all sullivan points and agree with Love Denny PA-C with the following exceptions and/or additions: 69 year old with T2DM presents to the ER with fever, dysuria, and vaginal itching ongoing for the last week. O/E HS increased rate, regular rhythm, no murmurs, Chest CTAB, Abdo left sided tenderness without guarding, left CVA tenderness A/P Sepsis with left pyelonephritis as source - follow up blood and urine cultures, IV ceftriaxone, lactate < 4 and not hypotensive therefore does not meet criteria for 30ml/kg IV fluids however will give additional 1L NSS now due to ongoing tachycardia PG Care Time/CCT Total # of Minutes Spent Total Time Spent with Patient: Total time spent is greater than 50% in coordination of care (as documented) at patient's floor/unit and/or counseling patient: Coding Level of Care Code 52592 INT INP/OBS CARE 3/75MIN Diagnoses Sepsis A41.9 UTI (urinary tract infection) N39.0 Pyelonephritis of left kidney N12 Type 2 diabetes mellitus E11.9 Moderate obstructive sleep apnea G47.33 Thrombocytosis D47.3 Time Spent (min) 65
--- NOTE | 2024-08-05 16:51 | Emergency Department Note ---
Impression & Plan Acute pyelitis, Sepsis, Acute pyelonephritis ED Provider Note NAME: KIYA GREENE AGE: 69 SEX: F : 1955 ARRIVES VIA: Walk-In INFORMANT: Patient, ED PROVIDER(S): Roderick Frazier MD CHIEF COMPLAINT: Dysuria, tachycardia HPI: This is a 69-year-old female presenting for dysuria and tachycardia. Patient states that over the past few days she has noted burning with urination, mild fevers. She was at her PCPs appointment today and noted have a low-grade fever. She was diaphoretic. She was referred here for further evaluation. At this time patient is somewhat sleepy but easily arousable. Otherwise she does report UTI type symptoms. She notes some slight abdominal pain. ROS: See above HPI for pertinent positives & negatives. A total of 10 systems reviewed and were otherwise negative. PAST MEDICAL HISTORY: See Below PAST SURGICAL HISTORY: See Below FAMILY HISTORY: See Below SOCIAL HISTORY: See Below HOME MEDICATIONS: See Below ALLERGIES: See Below VITALS: See Below PHYSICAL EXAMINATION: General: resting comfortably in no acute distress Head: Normocephalic and atraumatic Eyes: Normal inspection, extraocular muscles intact Ear, nose, throat: Normal external exam Neck: Normal range of motion Respiratory: lungs clear to auscultation bilaterally Cardiovascular: Regular rate/rhythm, no murmur GI: Left lower quadrant tenderness, suprapubic tenderness, involuntary guarding Extremities: nontender, moves all extremities Neuro: The patient awake and alert, appropriately conversive, no focal deficits, symmetric faces Skin: Warm, dry, and intact] MEDICAL DECISION MAKING: This a 69-year-old female presenting for dysuria/tachycardia. Patient reports likely unwell. She does not appear septic shock as her blood pressure is not low. She is tachycardic, currently febrile however. Consider urosepsis versus perforated diverticulitis with her abdominal pain. Consider appendicitis, cholecystitis, bowel perforation, pyelonephritis. -Lab work is revealing of a leukocytosis to over 17.8. Otherwise slight hyponatremia. Lactic acid elevated to 2.9. Troponin elevated as well. -Patient ceftriaxone, and 1 L normal saline. -Patient is borderline hypoxic, concern for fluid overload, will refrain from second liter at this time -Urinalysis reveals UTI -CT imaging reveals cystitis, left-sided pyelonephritis/pyelitis -Patient will require admission, discussed with Dr. Kathleen for admission Differential diagnosis: Urosepsis, diverticulitis, bursitis, cholecystitis, bowel perforation, pyelonephritis ER treatment provided: See below Independent History obtained from: Diagnostics interpreted by me: ECG: ECG independently interpreted by me with normal sinus rhythm, rate of 123, normal axis, normal AR, normal QRS, normal QTc, no ST segment elevations consistent with STEMI criteria none Cardiac Monitoring: An order was placed for continuous cardiac monitoring. The monitor shows a rate of 129 with sinus rhythm. Laboratory studies: As stated above and show below. Imaging studies: See below. Critical Care Note: I have personally spent 35 minutes of critical care time in the direct management of this patient. This includes bedside care, interpretation of diagnostic studies, and testing, discussion with consultants, patient, and family members, and other required patient management activities. This 35 minutes is in excess of all separately billable procedures. Past Med/Surg History Problem List (Updated 08/05/24 @ 19:21 by Roderick Frazier MD) Acute pyelonephritis (Acute) Sepsis (Acute) Acute pyelitis (Acute) Pyelonephritis of left kidney Sepsis Unstable gait Recurrent falls Moderate obstructive sleep apnea Lumbosacral radiculopathy Osteoarthritis of right knee Situational depression Type 2 diabetes mellitus Osteoporosis, unspecified Thrombocytosis Nocturnal hypoxemia (Chronic) Migraine (Chronic) Neuropathy Fibromyalgia (Chronic) Sleep apnea (Chronic) cpap HTN (hypertension) (Chronic) Hyperlipidemia (Chronic) Medical History Neuroforaminal stenosis of lumbar spine Callus of foot Trigger finger Metabolic syndrome EKG abnormalities Arthritis History of anemia Diabetes mellitus, type 2 Migraine rare Surgical History S/P trigger finger release History of tonsillectomy and adenoidectomy History of D&C History of total abdominal hysterectomy and bilateral salpingo-oophorectomy History of section X 2 Ganglion cyst of wrist removed History of repair of rotator cuff rt/left History of discectomy lumbar History of colonoscopy History of cholecystectomy Liver cyst REMOVED (BENIGN) History of tooth extraction Family History Father Family history of diabetes mellitus Myocardial infarction Brother Family history of diabetes mellitus Sister Ovarian cancer Family history of diabetes mellitus Mother Family history of esophageal cancer Myocardial infarction Other No family history of adverse response to anesthesia Denies family history of Prostate cancer Breast cancer Lung cancer Colorectal cancer Social History Smoking Status: Never smoker Second Hand Exposure: No (as a child); Do You Dip or Chew Tobacco: No; Hx Alcohol Use: Yes Alcohol type: wine Alcohol Intake Frequency Comment: very rarely Preferred Language: Irish Communication Ability: Effective Visual Impairment: Limited Hearing Ability: Hard of Hearing Pilot Supervisor Required: No Beliefs That Will Affect Care: None marital status: Current Living Situation: Spouse Current Living Situation Comment: current occupational status: retired How many Children do You have: 4 Feels Safe at Home: Yes Childhood Exposure to Second-Hand Smoke: Yes Diet: regular caffeine: Yes (1 cup of coffee daily, sometimes tea ) during the past year weight has: remained stable Dental Care, Regularly: Yes Physical Activity Frequency: Does not Exercise Seatbelt Use: always Sunscreen Use: Yes Assistive Devices: Glasses Allergies Allergies Allergy/AdvReac Type Severity Reaction Status Date / Time codeine AdvReac Mild Dizziness Verified 08/05/24 13:03 niacin AdvReac Mild flushing Verified 08/05/24 13:03 Niacin Preparations AdvReac Mild flushing Verified 08/05/24 13:03 feeling Home Meds Home Medications Medication Instructions Recorded Confirmed calcium 600 mg (as 1 tab PO QAM 07/19/18 08/05/24 carbonate)-vitamin D3 5 mcg (200 unit) tablet (Calcium 600 + D(3)) flaxseed oil 1,000 mg capsule 1,000 mg PO QAM 07/19/18 08/05/24 multivitamin 1 tab PO QAM 07/19/18 08/05/24 coQ10 (ubiquinol) 100 mg capsule 100 mg PO QAM 01/12/19 08/05/24 cholecalciferol (vitamin D3) 125 5,000 mcg PO QAM 05/20/20 08/05/24 mcg (5,000 unit) tablet (Vitamin D3) magnesium 200 mg tablet 200 mg PO QAM 12/11/23 08/05/24 icosapent ethyl 1 gram capsule 2 g PO DAILY 06/30/24 08/05/24 (Vascepa) Previous Rx's Medication Instructions Recorded CPAP Machine #1 ea 12/08/19 alendronate 70 mg tablet See Rx Instructions .Route 01/08/24 .COMPLEX #12 tabs metformin 500 mg tablet,extended See Rx Instructions .Route 01/27/24 release 24 hr .COMPLEX #90 tabs atorvastatin 10 mg tablet See Rx Instructions .Route 04/02/24 .COMPLEX #90 tabs lisinopril 20 See Rx Instructions .Route 04/02/24 mg-hydrochlorothiazide 12.5 mg .COMPLEX #90 tabs tablet duloxetine 30 mg capsule,delayed 30 mg PO DAILY #90 caps 06/19/24 release Results & Data (ED) Vital Signs Vital Signs - 24 hr 08/05/24 14:09 08/05/24 14:39 08/05/24 14:39 Temperature 36.6 C Temperature Source Temporal Artery Scan Pulse Rate 127 H Pulse Rate [Apical] Pulse Rate from SpO2 Sensor Pulse Rhythm [Apical] Respiratory Rate 12 Respiratory Effort / Characteristics Non-Labored Respiratory Depth Normal Blood Pressure 136/82 Blood Pressure [Right Arm] Blood Pressure Mean 100 Blood Pressure Mean [Right Arm] Pulse Oximetry 98 Oxygen Delivery Method Room Air Room Air Room Air Sepsis Recent Fever Within 48 Hours No Sepsis New/Unexplained Change in Mental Status N/A Sepsis Action Taken by Nursing No Action Required 08/05/24 15:00 08/05/24 15:00 08/05/24 15:06 Temperature Temperature Source Pulse Rate 117 H Pulse Rate [Apical] Pulse Rate from SpO2 Sensor 119 H Pulse Rhythm [Apical] Respiratory Rate Respiratory Effort / Characteristics Respiratory Depth Blood Pressure 133/75 133/75 Blood Pressure [Right Arm] Blood Pressure Mean 78 78 Blood Pressure Mean [Right Arm] Pulse Oximetry 93 Oxygen Delivery Method Sepsis Recent Fever Within 48 Hours Sepsis New/Unexplained Change in Mental Status Sepsis Action Taken by Nursing 08/05/24 15:58 08/05/24 18:30 Temperature 38.8 C H Temperature Source Oral Pulse Rate 113 H Pulse Rate [Apical] 129 H Pulse Rate from SpO2 Sensor Pulse Rhythm [Apical] Regular Respiratory Rate 24 Respiratory Effort / Characteristics Non-Labored Respiratory Depth Normal Blood Pressure Blood Pressure [Right Arm] 133/79 Blood Pressure Mean Blood Pressure Mean [Right Arm] 97 Pulse Oximetry 94 Oxygen Delivery Method Room Air Sepsis Recent Fever Within 48 Hours Sepsis New/Unexplained Change in Mental Status Sepsis Action Taken by Nursing Laboratory Data 08/05/24 14:30 08/05/24 14:30 Lab Results 08/05/24 08/05/24 08/05/24 Range/Units 14:30 15:17 16:24 WBC 17.80 H (4.8-10.8) K/ul RBC 4.39 (4.20-5.40) M/uL Hgb 13.8 (12.0-16.0) g/dl Hct 39.9 (37.0-47.0) % MCV 90.9 (80.0-100.0) fL MCH 31.4 (25.0-34.0) pg MCHC 34.6 (32.0-36.0) g/dL RDW Std Deviation 47.7 H (36.4-46.3) fL RDW Coeff of [place] 14.3 (11.5-14.5) % Plt Count 308 (130-400) K/uL MPV 10.3 (9.4-12.4) fL Immature Gran % (Auto) 0.9 % Neut % (Auto) 80.8 % Lymph % (Auto) 6.5 % [place] % (Auto) 11.6 % Eos % (Auto) 0.0 % Baso % (Auto) 0.2 % Neut # (Auto) 14.38 H (1.40-6.50) K/uL Lymph # (Auto) 1.16 L (1.20-3.40) K/uL [place] # (Auto) 2.06 H (0.11-0.59) K/uL Eos # (Auto) 0.00 (0.00-0.50) K/uL Baso # (Auto) 0.04 (0.00-0.20) K/uL Immature Gran # (Auto) 0.16 (0.01-0.20) K/uL PT 11.8 (9.0-12.0) Seconds INR 1.1 (0.9-1.1) APTT 29 (21-31) Seconds PTT Ratio 1.1 Sodium 132 L (136-145) mmol/L Potassium 3.9 (3.5-5.1) mmol/L Chloride 97 L (98-107) mmol/L Carbon Dioxide 24 (21-32) mmol/L Anion Gap 11 (3-11) BUN 19 (6-23) mg/dl Creatinine 0.89 (0.6-1.2) mg/dl Est Cr Clr Drug Dosing Not Reportable eGFR 70.14 BUN/Creatinine Ratio 21.3 H (10-20) Glucose 287 H (70-99(Fasting)) mg/dl POC Glucose (70-99) mg/dl Lactate 2.9 H* 1.6 (0.4-2.0) mmol/L Calcium 9.2 (8.6-10.3) mg/dl Magnesium 1.9 (1.7-2.4) mg/dl Total Bilirubin 1.0 (0.2-1.0) mg/dl AST 26 (13-39) U/L ALT 33 (7-52) U/L Alkaline Phosphatase 106 H (34-104) U/L Troponin I High Sens 21.6 H 16.2 H D (0-14) pg/ml Total Protein 7.3 (6.0-8.3) gm/dl Albumin 4.1 (3.4-5.0) gm/dl Globulin 3.2 (2.5-4.0) gm/dl Albumin/Globulin Ratio 1.3 (0.9-2) Procalcitonin 1.15 H (0-0.5) ng/ml Urine Color [place] Urine Appearance Turbid A (Clear) Urine pH 6.0 (4.5-7.5) Ur Specific [place] 1.035 H (1.000-1.030) Urine Protein 3+ H (Negative) Urine Glucose (UA) 2+ H (Negative) Urine Ketones 1+ H (Negative) Urine Blood 3+ H (Negative) Urine Nitrite Positive A (Negative) Urine Bilirubin 1+ H (Negative) Urine Urobilinogen Negative (Negative) Ur Leukocyte Esterase 3+ H (Negative) Urine WBC (Auto) >50 H (0-5) /hpf Urine RBC (Auto) >20 H (0-2) /hpf U Hyaline Cast (Auto) 6-10 H (0-2) /lpf U Epithel Cells (Auto) 6-10 H (0-2) /hpf Urine Bacteria (Auto) 4+ H (None Seen) 08/05/24 Range/Units 19:08 WBC (4.8-10.8) K/ul RBC (4.20-5.40) M/uL Hgb (12.0-16.0) g/dl Hct (37.0-47.0) % MCV (80.0-100.0) fL MCH (25.0-34.0) pg MCHC (32.0-36.0) g/dL RDW Std Deviation (36.4-46.3) fL RDW Coeff of [place] (11.5-14.5) % Plt Count (130-400) K/uL MPV (9.4-12.4) fL Immature Gran % (Auto) % Neut % (Auto) % Lymph % (Auto) % [place] % (Auto) % Eos % (Auto) % Baso % (Auto) % Neut # (Auto) (1.40-6.50) K/uL Lymph # (Auto) (1.20-3.40) K/uL [place] # (Auto) (0.11-0.59) K/uL Eos # (Auto) (0.00-0.50) K/uL Baso # (Auto) (0.00-0.20) K/uL Immature Gran # (Auto) (0.01-0.20) K/uL PT (9.0-12.0) Seconds INR (0.9-1.1) APTT (21-31) Seconds PTT Ratio Sodium (136-145) mmol/L Potassium (3.5-5.1) mmol/L Chloride (98-107) mmol/L Carbon Dioxide (21-32) mmol/L Anion Gap (3-11) BUN (6-23) mg/dl Creatinine (0.6-1.2) mg/dl Est Cr Clr Drug Dosing eGFR BUN/Creatinine Ratio (10-20) Glucose (70-99(Fasting)) mg/dl POC Glucose 229 H (70-99) mg/dl Lactate (0.4-2.0) mmol/L Calcium (8.6-10.3) mg/dl Magnesium (1.7-2.4) mg/dl Total Bilirubin (0.2-1.0) mg/dl AST (13-39) U/L ALT (7-52) U/L Alkaline Phosphatase (34-104) U/L Troponin I High Sens (0-14) pg/ml Total Protein (6.0-8.3) gm/dl Albumin (3.4-5.0) gm/dl Globulin (2.5-4.0) gm/dl Albumin/Globulin Ratio (0.9-2) Procalcitonin (0-0.5) ng/ml Urine Color Urine Appearance (Clear) Urine pH (4.5-7.5) Ur Specific [place] (1.000-1.030) Urine Protein (Negative) Urine Glucose (UA) (Negative) Urine Ketones (Negative) Urine Blood (Negative) Urine Nitrite (Negative) Urine Bilirubin (Negative) Urine Urobilinogen (Negative) Ur Leukocyte Esterase (Negative) Urine WBC (Auto) (0-5) /hpf Urine RBC (Auto) (0-2) /hpf U Hyaline Cast (Auto) (0-2) /lpf U Epithel Cells (Auto) (0-2) /hpf Urine Bacteria (Auto) (None Seen) Administered Medications Acetaminophen (Acetaminophen 325 Mg Tab) 650 mg PO Q4H PRN PRN Reason: fever or pain Stop: 09/04/24 18:57 Last Admin: 08/05/24 19:04 Dose: 650 mg Documented By: JOSE Discontinued Medications Acetaminophen (Acetaminophen 325 Mg Tab) Confirm Administered Dose 650 mg .ROUTE .STK-MED ONE Stop: 08/05/24 19:04 Last Admin: 08/05/24 19:13 Dose: Not Given Documented By: JOSE Ceftriaxone Sodium (Rocephin) 2,000 mg in 50 mls @ 100 mls/hr IV NOW STA Stop: 08/05/24 15:01 Last Infusion: 08/05/24 15:24 Dose: Infused Documented By: Admin: 08/05/24 14:54 Dose: 100 mls/hr Documented By: SYL Sodium Chloride (Nss) 1,000 mls @ 999 mls/hr IV .Q1H1M ONE Stop: 08/05/24 16:12 Last Infusion: 08/05/24 16:25 Dose: Infused Documented By: Admin: 08/05/24 15:24 Dose: 999 mls/hr Documented By: SYL Ioversol (Optiray 320 100ml) 94 ml IV ONCE ONE Stop: 08/05/24 15:41 Last Admin: 08/05/24 15:41 Dose: 94 ml Documented By: YAMILETH Imaging Data Radiologist's Impression: Chest X-Ray 08/05/24 14:23 EXAM: Radiograph of the Chest 1 View INDICATION: Sepsis. TECHNIQUE: Frontal view of the chest. COMPARISON: 03/08/2020 FINDINGS: Lungs and pleural spaces: Very minimal scarring left base unchanged. No consolidation or pulmonary edema. No pleural effusion or pneumothorax. Heart: Shape and configuration within normal limits allowing for technique. Mediastinum: Normal contour. Bones/joints: Degenerative changes noted throughout the spine. No acute osseous abnormality seen. Soft tissues: No abnormality noted. No radiopaque foreign body noted. Upper abdomen: No abnormality noted. IMPRESSION: No acute cardiopulmonary disease. ACT 112: Negative or not required by law. Electronically signed by Ngoc Roque 08-05-2024 4:17 PM Abdomen/Pelvis CT 08/05/24 14:[address] WITH IV CONTRAST CT DOSE: 1389.26 mGy.cm HISTORY: Acute lower abdominal pain with urinary tract infection and fever septic, LLQ pain, divertic, pyelo TECHNIQUE: Multiaxial CT images of the abdomen and pelvis were performed following the IV administration of 94 cc of Optiray, A dose lowering technique was utilized adhering to the principles of ALARA. COMPARISON STUDY: 01/14/2017 FINDINGS: Clear lung bases. No pneumoperitoneum. Unremarkable spleen, pancreas and adrenal glands. Cholecystectomy. Hepatomegaly with hepatic steatosis. Small left hepatic lobe cysts. Patent portal vein. Unremarkable right kidney. Striated nephrogram of the left kidney with perinephric stranding. There is still thickening of the renal collecting system and ureter on the left. No significant hydronephrosis. Urinary bladder wall thickening with partial distention. Atherosclerosis of the aorta. No lymphadenopathy. No bowel obstruction or bowel wall thickening. Normal appendix. No acute fracture. IMPRESSION: 1. Findings compatible with cystitis and left-sided pyelonephritis, ureteritis and pyelitis. 2. No urolith or hydronephrosis. 3. No bowel obstruction or bowel wall thickening. 4. Hepatic steatosis. ACT 112: Negative or not required by law. The above report was generated using voice recognition software. It may contain grammatical, syntax or spelling errors. Electronically signed by: Steve Manning M.D. 08/05/2024 4:27 PM Discharge Plan Visit Data Chief Complaint: Urinary Symptoms Stated Complaint: UTI, HEART RATE, BREATHING ED Provider: Roderick Frazier Discharge Problem: Acute pyelitis, Sepsis, Acute pyelonephritis Forms [facility] Prescriptions Prescriptions: No Action (DME) CPAP Machine Misc See Rx Instructions .ROUTE .MEDSUPPLY Qty: 1 0RF Rx Instructions: PLEASE DECREASE AUTO TITRATING CPAP SETTINGS TO 4-8CM WATER PRESSURE LENGTH OF NEED: 99 MONTHS DX: G47.33 cholecalciferol (vitamin D3) [Vitamin D3] 125 mcg (5,000 unit) tablet 5,000 mcg PO QAM alendronate 70 mg tablet See Rx Instructions .ROUTE .COMPLEX Qty: 12 3RF Dose Instruction: TAKE 1 TABLET (70 MG) WEEKLY Rx Instructions: TAKE 1 TABLET (70 MG) WEEKLY metformin 500 mg tablet extended release 24 hr See Rx Instructions .ROUTE .COMPLEX Qty: 90 3RF Dose Instruction: TAKE 1 TABLET DAILY Patient Comments: qpm Rx Instructions: TAKE 1 TABLET DAILY atorvastatin 10 mg tablet See Rx Instructions .ROUTE .COMPLEX Qty: 90 3RF Dose Instruction: TAKE 1 TABLET DAILY Patient Comments: takes hs Rx Instructions: TAKE 1 TABLET DAILY lisinopril-hydrochlorothiazide 20-12.5 mg tablet See Rx Instructions .ROUTE .COMPLEX Qty: 90 3RF Dose Instruction: TAKE 1 TABLET DAILY Patient Comments: hs Rx Instructions: TAKE 1 TABLET DAILY duloxetine 30 mg capsule,delayed release(DR/EC) 30 mg PO DAILY Qty: 90 3RF magnesium 200 mg tablet 200 mg PO QAM icosapent ethyl [Vascepa] 1 gram capsule 2 g PO DAILY coQ10 (ubiquinol) 100 mg Capsule 100 mg PO QAM multivitamin Tablet 1 tab PO QAM calcium carbonate-vitamin D3 [Calcium 600 + D(3)] 600 mg(1,500mg) -200 unit Tablet 1 tab PO QAM flaxseed oil 1,000 mg Capsule 1,000 mg PO QAM Referrals Referrals: Arleth Lorenzo DO [Primary Care Provider] -
[2024-08-05] MEDS: ACETAMINOPHEN 325 MG TAB PO PRN (19:04)
[2024-08-05] MEDS: ACETAMINOPHEN 325 MG TAB ONE (19:13)
[2024-08-05] MEDS ORDERED: DEXTROSE 50% 50 ML SYRINGE IV PRN (20:55)
[2024-08-05] MEDS ORDERED: GLUCAGON FOR INJ 1 MG VIAL SQ PRN (20:55)
[2024-08-05] MEDS ORDERED: CARBOHYDRATES FOR HYPOGLYCEMIA PO PRN (20:55)
[2024-08-05] MEDS ORDERED: GLUCOSE 10 TAB/TUBE PO PRN (20:55)
[2024-08-05] MEDS ORDERED: GLUCOSE 40% GEL 15 GM TUBE PO PRN (20:55)
[2024-08-05] MEDS: cefTRIAXone SODIUM 1,000 MG/50 ML BAG IV SCH (21:26)
[2024-08-05] MEDS: INSULIN ASPART PER UNIT CHARGE SC SCH (22:14)
[2024-08-06 04:09] LABS: A calco-baum cmplx NotReported Not Detected (NotDetected); Bact fragilis Not Reported Not Detected (NotDetected); Blood Culture Id Panel See PCR Comment (NotDetected); C auris Not Reported Not Detected (NotDetected); CTX-M Resistant Gene Not Detected (NotDetected); Calbicans Not Reported Not Detected (NotDetected); Candida glabrata Not Reported Not Detected (NotDetected); Candida krusei Not Reported Not Detected (NotDetected); Cneoformans/gatti Not Reported Not Detected (NotDetected); Cparapsilosis Not Reported Not Detected (NotDetected); E cloacae compx Not Reported Not Detected (NotDetected); Efaecalis Not Reported Not Detected (NotDetected); Efaecium Not Reported Not Detected (NotDetected); Enterobacterales Not Reported DETECTED (NotDetected); Escherichia coli Not Reported DETECTED (NotDetected); H influenzae Not Reported Not Detected (NotDetected); IMP Resistant Gene Not Detected (NotDetected); K aerogenes Not Reported Not Detected (NotDetected); KPC Resistant Gene Not Detected (NotDetected); Koxytoca Not Reported Not Detected (NotDetected); Kpneumoniae grp Not Reported Not Detected (NotDetected); Lmonocyt Not Reported Not Detected (NotDetected); N meningitidis Not Reported Not Detected (NotDetected); NDM Resistant Gene Not Detected (NotDetected); OXA 48 Like Resistant Gene Not Detected (NotDetected); P aeruginosa Not Reported Not Detected (NotDetected); Proteus spp Not Reported Not Detected (NotDetected); Salmonella spp Not Reported Not Detected (NotDetected); Staph lugdunensis Not Reported Not Detected (NotDetected); Staph spp. Not Reported Not Detected (NotDetected); Staphaureus Not Reported Not Detected (NotDetected); Staphepi Not Reported Not Detected (NotDetected); Stenmaltophilia Not Reported Not Detected (NotDetected); Strep agal(GrpB) Not Reported Not Detected (NotDetected); Strep pneum Not Reported Not Detected (NotDetected); Strep pyog (GrpA) Not Reported Not Detected (NotDetected); Strep spp Not Reported Not Detected (NotDetected); VIM Resistant Gene Not Detected (NotDetected); mcr-1 Colistin Resistant Gene Not Detected (NotDetected)
[2024-08-06 04:17] LABS: Enterobacterales DETECTED (NotDetected)
[2024-08-06] MEDS: CEFEPIME 2000MG 2,000 MG/20 ML SYR IV SCH (05:02)
--- NOTE | 2024-08-06 08:18 | Hospitalist Progress Note ---
Date of Service August 06, 2024 Assessment & Plan (1) Sepsis: Plan: Patient is a 69-year-old female sent by PCP for evaluation for concerns for Sepsis/UTI w/ UTI symptoms including fever (temp 101F), dysuria and vaginal itching and back pain WBC 17.8k, HR to 120s (sinus tach). Lactic 1.6. Procal 0.15. Na 132 (corrected 136 for glucose 287), BUN/Cr 19/0.89. CXR negative CTAP findings compatible with cystitis and left-sided pyelonephritis, ureteritis and pyelitis, urolith or hydronephrosis, no bowel obstruction or bowel thickening, presence of hepatic steatosis s/p 2gm IV Ceftriaxone. 1L NSS in ER and additional 1L NSS provided for total of 2L given meeting sepsis criteria provided Continued on Ceftriaxone however blood cultures w/ concerns for Enterobacter species on PCD ID panel and was switched to Cefepime last evening 08/05 however discussed w/ pharmacist and not ESBL and will place BACK ON CEFTRIAXONE FOR NOW and monitor urine cx/sensitivities Monitor final blood cultures/urine cx Temp 38C this morning. Tylenol changed to 1gm q8h. Continued on 2L NC this morning for O2 requirement, not on O2 at baseline. Did report SOB, ?diminished in the bases. CXR obtained and pulm edema noted and will provide Lasix 20mg IV and titrate O2 as needed. Rn to provide incentive spirometer as well to prevent atelectasis Biofire also added for completeness w/ her SOB, ill feeling this past week. Pain control, antiemetics as needed. Bowel regimen added, monitor. (Last BM reported on SATURDAY) PT/OT consults placed Monitor labs in AM (2) UTI (urinary tract infection): Plan: Symptoms of dysuria, vaginal itching CTAP cystitis and left-sided pyelonephritis, ureteritis, pyelitis, hepatic steatosis UA +, urine cx pending but blood cx as above ECOLI -- abx switched back to CEFTRIAXONE as above for now until sensitivities back. Monitor UOP, blood cxs (3) Pyelonephritis of left kidney: Plan: Identified on CTAP, +L CVA tenderness Abx as outlined, f/u urine/blood cx and sensitivities (4) Type 2 diabetes mellitus: Plan: No insulin at baseline . Most recent A1c 6.9 in May Home meds: metformin, on hold while inpatient BSG elevation on admission suspected 2nd to infection. Adjustments to SSI/added carb ratio but also consulted pharmacy consulted for glycemic management/assistance Monitor BSGs (5) Moderate obstructive sleep apnea: Plan: CPAP to continued, noting patient did NOT use last night. Encouraged nursing to encourage compliance/see if able to have home machine brought in Plan HLD- Atorvastatin continued HTN- Lisinopril-HCTZ placed on hold for now, lasix IV as above. Plan to resume her HCTZ-lisinopril in AM 11/13 if PO intake acceptable Mood- Duloxetine VTE prophylaxis: SCDs, added Lovenox SQ Dispo: continued inpatient stay on IV abx, monitor final urine/blood cx. Pain control/antipyretics/supportive care. Lasix for pulm edema. PT/OT consults placed to ensure no needs at dc Admission and Anticipated Discharge Date Admission Date: August 05, 2024 Supervising Physician Co-Signing Physician Notes The patient was not seen by me. The chart was reviewed. Case discussed with BARON Dubon. Agree with assessment and plan Subjective Evaluated this morning, resting in bed. Ongoing fever, just given tylenol. Reports back pain improving since admission but still present bilaterally. Discussed blood cultures positive but also changing back to Ceftriaxone to prevent complications as not needing coverage based on ID PCR. She remains on supplemental O2 to maintain sats, not on oxygen at baseline. Home diuretics on hold w/ HCTZ-lisinopril -- she reports had been drinking alright but since illness had not really been eating much. Minimal gas, no BM since saturday. Will order bowel regimen as well/monitor. Does have +BS on exam but is slightly distended and patient feeling bloated. Had completed additional 2L IVF and will hold off further, encouraged to continue to push oral fluids. Questions/concerns addressed at this time. Physical Exam 2 Physical Exam: General: 69 yo female resting in bed, just medicated with Tylenol for fever, NAD but mildly uncomfortable with pain Head atraumatic, normocephalic, mm slightly DRY, trachea midline Resp: diminished in the bases, faint expiratory wheeze but no crackles/rales, on 2L NC CV: regular rhythm but slightly tachy to the low 100s, no significant m/r/g, trace LE edema but calves nontender/pulses present GI: +BS, slight distension, mild generalized cramping but no overt tenderness/guarding/rebound : +L CVA tenderness (but does have ?b/l) MSK/Neuro: not confused, answering questions appropriately, moves all extremities, generalized weakness Psych: AOx3, cooperative with exam Results & Data Results & Data Vital Signs (Past 12 Hours) Vital Signs Temp Pulse Resp BP Pulse Ox O2 Del Method O2 Flow Rate 08/06/24 07:49 37.0 C 105 H 16 140/79 95 Nasal Cannula 2 08/05/24 20:45 Nasal Cannula 2 08/05/24 20:45 36.9 C 107 H 18 130/75 95 Nasal Cannula 2 08/05/24 20:45 36.9 C 107 H 18 130/75 95 Nasal Cannula 2 Laboratory Results 08/06/24 08:03 08/06/24 08:03 Mag 2.0 Procal 1.15 Diagnostic Findings Chest X-Ray 08/05/24 14:23 EXAM: Radiograph of the Chest 1 View INDICATION: Sepsis. TECHNIQUE: Frontal view of the chest. COMPARISON: 03/08/2020 FINDINGS: Lungs and pleural spaces: Very minimal scarring left base unchanged. No consolidation or pulmonary edema. No pleural effusion or pneumothorax. Heart: Shape and configuration within normal limits allowing for technique. Mediastinum: Normal contour. Bones/joints: Degenerative changes noted throughout the spine. No acute osseous abnormality seen. Soft tissues: No abnormality noted. No radiopaque foreign body noted. Upper abdomen: No abnormality noted. IMPRESSION: No acute cardiopulmonary disease. ACT 112: Negative or not required by law. Electronically signed by Ngoc Roque 08-05-2024 4:17 PM Abdomen/Pelvis CT 08/05/24 14:[address] WITH IV CONTRAST CT DOSE: 1389.26 mGy.cm HISTORY: Acute lower abdominal pain with urinary tract infection and fever septic, LLQ pain, divertic, pyelo TECHNIQUE: Multiaxial CT images of the abdomen and pelvis were performed following the IV administration of 94 cc of Optiray, A dose lowering technique was utilized adhering to the principles of ALARA. COMPARISON STUDY: 01/14/2017 FINDINGS: Clear lung bases. No pneumoperitoneum. Unremarkable spleen, pancreas and adrenal glands. Cholecystectomy. Hepatomegaly with hepatic steatosis. Small left hepatic lobe cysts. Patent portal vein. Unremarkable right kidney. Striated nephrogram of the left kidney with perinephric stranding. There is still thickening of the renal collecting system and ureter on the left. No significant hydronephrosis. Urinary bladder wall thickening with partial distention. Atherosclerosis of the aorta. No lymphadenopathy. No bowel obstruction or bowel wall thickening. Normal appendix. No acute fracture. IMPRESSION: 1. Findings compatible with cystitis and left-sided pyelonephritis, ureteritis and pyelitis. 2. No urolith or hydronephrosis. 3. No bowel obstruction or bowel wall thickening. 4. Hepatic steatosis. ACT 112: Negative or not required by law. The above report was generated using voice recognition software. It may contain grammatical, syntax or spelling errors. Electronically signed by: Steve Manning M.D. 08/05/2024 4:27 PM Chest X-Ray 08/06/24 10:48 XR chest 1V portable CLINICAL HISTORY: hypoxia, eval pna vs atelectasis COMPARISON STUDY: Chest radiograph August 05, 2024. FINDINGS: Lung volumes are normal. Lungs are clear. There is no pneumothorax or pleural effusion. There is mild enlargement of the cardiac silhouette. Mediastinal contours are normal. There is pulmonary vascular congestion without overt pulmonary edema. IMPRESSION: Mild enlargement of the cardiac silhouette with pulmonary vascular congestion. ACT 112: Negative or not required by law. Electronically signed by: Pedrito Kenendy M.D. 08/06/2024 11:57 AM PG Care Time/CCT Total # of Minutes Spent Total Time Spent with Patient: Total time spent is greater than 50% in coordination of care (as documented) at patient's floor/unit and/or counseling patient: Coding Level of Care Code 92611 SUB INP/OBS CARE 3/50MIN Diagnoses Sepsis A41.9 UTI (urinary tract infection) N39.0 Pyelonephritis of left kidney N12 Type 2 diabetes mellitus E11.9 Moderate obstructive sleep apnea G47.33
[2024-08-06 08:45] LABS: Calcium 7.8 mg/dl (8.6-10.3); Creatinine Clr Calc Pharmacy 102.9 ml/min; Potassium 3.4 mmol/L (3.5-5.1)
[2024-08-06 09:20] LABS: Hematocrit (blood only) 31.8 % (37.0-47.0); Hemoglobin 10.9 g/dl (12.0-16.0); Mean Corpuscular Hemoglobin 31.3 pg (25.0-34.0); Mean Corpuscular Hgb Conc 34.3 g/dL (32.0-36.0); Mean Corpuscular Volume 91.4 fL (80.0-100.0); Mean Platelet Volume 10.6 fL (9.4-12.4); Platelet Count 227 K/uL (130-400); RDW Coefficient of Variation 14.6 % (11.5-14.5); Red Blood Count 3.48 M/uL (4.20-5.40); White Blood Count 11.63 K/ul (4.8-10.8)
[2024-08-06] MEDS: ATORVASTATIN 10 MG TAB PO SCH (09:35)
[2024-08-06] MEDS: DULoxetine HCL 30 MG CAP PO SCH (09:35)
[2024-08-06] MEDS: POTASSIUM CHLORIDE CRTAB 20 MEQ TABCR PO STA ×2 (09:35→13:28)
[2024-08-06 09:45] VITALS: RESP 18
[2024-08-06] MEDS ORDERED: PHARMACY GLYCEMIC MGMT CONSULT PRN (09:50)
[2024-08-06] MEDS: ACETAMINOPHEN 500 MG TAB PO PRN (10:14)
--- NOTE | 2024-08-06 10:24 | Pharmacy Report ---
Pharmacy Glycemic Short Note 2 - Date of Service August 06, 2024 - Glycemic Short BSG Results (Last 24 hours): 08/05/24 08/05/24 08/05/24 14:30 19:08 21:32 Glucose 287 H POC Glucose 229 H 302 H* 08/05/24 08/06/24 08/06/24 21:35 07:51 08:03 Glucose 177 H POC Glucose 316 H* 180 H 08/06/24 09:42 Glucose POC Glucose 284 H OUTPATIENT ANTIDIABETIC REGIMEN: * metformin 500 mg daily ASSESSMENT: * 69 year old with uti/pyelonephritis on IV antibiotics. Pharmacy consulted for glycemic management. BSGs last evening>300, possibly related to infection. Diet ordered at dinner yesterday so no coverage for carbs given either as order without CR. Most recent A1c 6.9%. Will add in CR today. PLAN FOR INPATIENT GLYCEMIC CONTROL: * Hold outpatient oral diabetes medications * Basal insulin * Lantus - hold * Bolus insulin * NovoLog per scale ACHS or Q6hrs while NPO * Goal Range: Low 120 mg/dL - High 160 mg/dL * Correction Factor: 30 mg/dL/unit * Nutritional / Prandial insulin per carb ratio of 1 unit per 10 grams CHO consumed
[2024-08-06] MEDS: SENNA 8.6 MG TAB PO SCH (11:45)
[2024-08-06] MEDS: DOCUSATE SODIUM 100 MG CAP PO SCH (11:45)
--- NOTE | 2024-08-06 11:58 | XRay Report ---
XR chest 1V portable CLINICAL HISTORY: hypoxia, eval pna vs atelectasis COMPARISON STUDY: Chest radiograph August 05, 2024. FINDINGS: Lung volumes are normal. Lungs are clear. There is no pneumothorax or pleural effusion. The re is mild enlargement of the cardiac silhouette. Mediastinal contours are normal. There is pulmonary vascular congestion without overt pulmonary edema. IMPRESSION: Mild enlargement of the cardiac silhouette with pulmonary vascular congestion. ACT 112: Negative or not required by law. Electronically signed by: Pedrito Kennedy M.D. 08/06/2024 11:57 AM
[2024-08-06 12:37] LABS: Adenovirus PCR Not Detected (NotDetected); Bordetella parapertussis PCR Not Detected (NotDetected); Bordetella pertussis PCR Not Detected (NotDetected); Chlamydia pneumoniae PCR Not Detected (NotDetected); Coronavirus 229E PCR Not Detected (NotDetected); Coronavirus CoV-2 (COVID19)PCR Not Detected (NotDetected); Coronavirus HKU1 PCR Not Detected (NotDetected); Coronavirus NL63 PCR Not Detected (NotDetected); Coronavirus OC43PCR Not Detected (NotDetected); Human Metapneumovirus PCR Not Detected (NotDetected); Influenza A PCR Not Detected (NotDetected); Influenza B PCR Not Detected (NotDetected); Mycoplasma pneumoniae PCR Not Detected (NotDetected); Parainfluenza Virus 1 PCR Not Detected (NotDetected); Parainfluenza Virus 2 PCR Not Detected (NotDetected); Parainfluenza Virus 3 PCR Not Detected (NotDetected); Parainfluenza Virus 4 PCR Not Detected (NotDetected); Respiratory Syncytial VirusPCR Not Detected (NotDetected); Rhinovirus/Enterovirus PCR Not Detected (NotDetected)
[2024-08-06] MEDS: INSULIN ASPART PER UNIT CHARGE SC SCH (13:04)
[2024-08-06] MEDS: FUROSEMIDE INJ 20 MG/2 ML VIAL IV ONE (13:28)
--- NOTE | 2024-08-06 16:17 | Electrocardiogram Report ---
Test Reason : Blood Pressure : */* mmHG Vent. Rate : 123 BPM Atrial Rate : 123 BPM P-R Int : 140 ms QRS Dur : 88 ms QT Int : 312 ms P-R-T Axes : 27 19 69 degrees QTcB Int : 446 ms Sinus tachycardia Otherwise normal ECG When compared with ECG of 31-Dec-2023 11:50, HR has increased by 23 bpm Otherwise no significant change Confirmed by Will Camacho ([id number]) on 08/06/2024 4:17:01 PM Referred By: REFERRED SELF Confirmed By: Will Camacho
[2024-08-06] MEDS: cefTRIAXone SODIUM 2,000 MG/50 ML BAG IV SCH (16:54)
--- NOTE | 2024-08-07 08:07 | Hospitalist Progress Note ---
Date of Service August 07, 2024 Assessment & Plan (1) Sepsis: Plan: Patient is a 69-year-old female sent by PCP for evaluation for concerns for Sepsis/UTI w/ UTI symptoms including fever (temp 101F), dysuria and vaginal itching and back pain WBC 17.8k, HR to 120s (sinus tach). Lactic 1.6. Procal 0.15. Na 132 (corrected 136 for glucose 287), BUN/Cr 19/0.89. CXR negative CTAP findings compatible with cystitis and left-sided pyelonephritis, ureteritis and pyelitis, NO urolith or hydronephrosis, no bowel obstruction or bowel thickening, presence of hepatic steatosis s/p 2gm IV Ceftriaxone, 2L NSS and additional 2L for total 4L ordered on admission Blood cx + 1/2 bottles w/ ecoli --urine cx repeat pending but given +blood cx/CTAP findings and dysuria, suspected source Ceftriaxone IV continued WBC now wnl at 8.82k T 38C AM 08/06 but AFEBRILE SINCE THAT TIME HCTZ-lisinopril resumed, renal function stable Did have element of volume overload/hypoxia 08/06 w/ ongoing O2 requirements and SOB complaints. CXR obtained, pulm vascular congestion noted (got 4L IVF on admission) s/p Lasix 20mg IV, repeat dose for today given slight elevation in BNP w/ ongoing complaints and improvement in sx/titration to RA (however ongoing SOB w/ exertion) Lovenox SQ started for DVT proph given sepsis/bacteremia and ongoing inpatient stay however further discussion with patient reporting family hx unprovoked DVT/PEs and did have some LLE edema prior couple of weeks and given STACK complaints w/ LLE edema on exam (however pulses present), Doppler obtained LLE which was NEGATIVE. Sinus tachy on EKG 108bpm, ddimer added. ELEVATED --> CTA chest obtained which was NEGATIVE for PE (fatty liver noted) ?need for BB for HR control. ECHO ordered for eval underlying valvular disease/EF prior to starting such Monitor labs/exam on repeat PT/OT consults placed (2) UTI (urinary tract infection): Plan: Symptoms of dysuria, vaginal itching CTAP w/ cystitis/L sided pyelo and ureteritis, pyelitis, hepatic steatosis Urine cx w/ repeat collection recommended, pending --> prelim without growth but notable has been on abx. Likely able to dc on course FLQ pending blood cx/s (3) Pyelonephritis of left kidney: Plan: Identified on CTAP, +L CVA tenderness Abx as outlined, f/u urine/blood cx and sensitivities (4) Type 2 diabetes mellitus: Plan: No insulin at baseline . Most recent A1c 6.9 in May Home meds: metformin, on hold while inpatient BSG elevation on admission suspected 2nd to infection and made adjustments to SSI yesterday/consulted pharmacy and BSGs much improved/stable. (5) Moderate obstructive sleep apnea: Plan: CPAP to continued, noting patient did NOT use last 2 nights ENCOURAGED COMPLIANCE/ TO BRING, risk for afib w/ untreated SHIRA but EKGs w/ Sinus tachy/no afib. Mag/K replete Monitor/outpt f/u \ (6) Left leg swelling: Plan: slightly more swollen than the right. given family hx clots, doppler to be obtained. Lovenox SQ started this morning for chemoproph and doppler negative --> continue chemoproph for DVT prevention IMPROVED w/ lasix as above, ECHO pending given BNP elevation for further eval Plan HLD- Atorvastatin continued HTN- Lisinopril-HCTZ RESUMED. Lasix as outlined. Monitor for BB as above for HR control Mood- Duloxetine VTE prophylaxis: SCDs, added Lovenox SQ as above. Venous doppler NEGATIVE/CTA chest NEG for PE Dispo: PT/OT rec rehab, will continue to monitor w/ treatment. Continues Ceftriaxone/monitor cx sensitivities. Possible BB pending ECHO results Admission and Anticipated Discharge Date Admission Date: August 05, 2024 Supervising Physician Co-Signing Physician Notes The patient was not seen by me. The chart was reviewed. Case discussed with BARON Dubon. Agree with assessment and plan Subjective Evaluated this morning, sitting up at side of bed eating lunch. On room air but significant SOB w/ exertion. GIven lasix this morning w/ improvement in leg edema but ongoing SOB. Doppler LLE negative for DVT, does note family hx of unprovoked clots. Given Lovenox SQ this morning for DVT proph while inpatient but obtained ddimer which was elevated and given sinus tachy w/ prior leg swelling for couple weeks, discussed obtaining CTA chest to eval for PE. If positive, without end organ damage/hypoxia or if no big clot burden could consider Eliquis/Xarelto and avoid heparin gtt which may prolong inpatient stay. ECHO ordered to eval underlying valvular disease/pumping function and discussed have had her HCTZ prior on hold and provided copious IVF on admission which could have also worsened her breathing. Pain improving but having increased cramping/gas pains and still without BM. Discussed suppository if needed and she was agreeable, dulcolax [place] ordered as needed. Hopeful to dc in the next 24-48 hours. Physical Exam 2 Physical Exam: General: 69 yo female sitting up at the side of the bed, eating lunch, NAD but SOB w/ exertion reported (HR 100s, sinus) HEENT: head atraumatic, normocephalic, mmm, trachea midline Resp: diminished in the bases, no overt wheezing/rales, on room air, SOB w/ exertion CV: sinus/sinus tachy to low 100s, faint systolic murmur, decreased LE edema, calves nontender/pulses present. GI: +BS throughout, slight distension/generalized cramping but no overt tenderness/guarding/rebound no martinez Msk/Neuro not confused, answering questions appropriately, moves all extremities, generalized weakness to b/l LE but equal Psych: AOx3, cooperative with exam Results & Data Results & Data Vital Signs (Past 12 Hours) Vital Signs Temp Pulse Resp BP Pulse Ox O2 Del Method 08/07/24 07:24 36.6 C 100 H 18 140/68 93 Room Air 08/06/24 21:23 37.0 C 106 H 18 168/76 H 95 Room Air Laboratory Results 08/07/24 08:00 08/07/24 08:00 Diagnostic Findings Venous Doppler Study 08/07/24 08:47 LEFT LOWER EXTREMITY VENOUS DOPPLER HISTORY: Acute pain and swelling of the left lower leg swelling, fam hx dvt, r/o dvt COMPARISON STUDY: 08/01/2006 FINDINGS: There is normal compressibility, flow, and augmentation within the left lower extremity deep venous system. IMPRESSION: No DVT within the left lower extremity. ACT 112: Negative or not required by law. Electronically signed by: Steve Manning M.D. 08/07/2024 10:29 AM Chest X-Ray 08/07/24 08:50 XR chest 1V portable CLINICAL HISTORY: f/u pulmonary edema COMPARISON STUDY: Chest radiograph August 06, 2015. FINDINGS: Lung volumes are normal. There is no consolidation. Minimal left basilar opacity favors atelectasis. There is no pneumothorax or pleural effusion. Cardiac size is normal. Mediastinal contours are normal. Pulmonary vascular congestion has resolved. IMPRESSION: No acute cardiopulmonary findings. Resolution of pulmonary vascular congestion. ACT 112: Negative or not required by law. Electronically signed by: Pedrito Kennedy M.D. 08/07/2024 9:26 AM Chest CTA 08/07/24 12:03 CT angio chest PE protocol CT DOSE: 939.68 mGy.cm HISTORY: 69 years-old Female with PE. Acute shortness of breath TECHNIQUE: Multiple CTA images of the chest were obtained after the intravenous administration of 119 ml Optiray. Coronal and sagittal MIPS were obtained from the axial data set and were submitted for review. All measurements were obtained according to NASCET criteria. A dose lowering technique was utilized adhering to the principles of ALARA. COMPARISON: Duplex venous Doppler study and chest radiograph of same day FINDINGS: CTA: Heart is upper limits of normal in size. No pericardial effusion. No thoracic aortic aneurysm. No pulmonary emboli identified. CT CHEST: 10 mm hypodense left thyroid nodule. No pathologically enlarged lymph nodes. No pneumothorax, pleural effusion, airspace consolidation or pulmonary edema. Mild linear subsegmental atelectasis versus scarring in the left lower lobe. Central airways appear patent. Hepatomegaly with hepatic steatosis. Small left hepatic lobe cyst. The spleen also appears mildly enlarged. No acute fracture. IMPRESSION: 1. Unremarkable CTA of the chest. No pulmonary emboli identified. 2. Hepatomegaly with hepatic steatosis. ACT 112: Negative or not required by law. The above report was generated using voice recognition software. It may contain grammatical, syntax or spelling errors. Electronically signed by: Steve Manning M.D. 08/07/2024 2:55 PM PG Care Time/CCT Total # of Minutes Spent Total Time Spent with Patient: Total time spent is greater than 50% in coordination of care (as documented) at patient's floor/unit and/or counseling patient: Coding Level of Care Code 68497 SUB INP/OBS CARE 3/50MIN Diagnoses Sepsis A41.9 UTI (urinary tract infection) N39.0 Pyelonephritis of left kidney N12 Type 2 diabetes mellitus E11.9 Moderate obstructive sleep apnea G47.33 Left leg swelling M79.89
[2024-08-07] MEDS: ENOXAPARIN INJ 40 MG/0.4 ML SYR SQ SCH (08:29)
[2024-08-07 08:56] LABS: Hematocrit (blood only) 33.6 % (37.0-47.0); Hemoglobin 11.5 g/dl (12.0-16.0); Mean Corpuscular Hemoglobin 30.8 pg (25.0-34.0); Mean Corpuscular Hgb Conc 34.2 g/dL (32.0-36.0); Mean Corpuscular Volume 90.1 fL (80.0-100.0); Mean Platelet Volume 10.5 fL (9.4-12.4); Platelet Count 271 K/uL (130-400); RDW Coefficient of Variation 14.3 % (11.5-14.5); RDW Standard Deviation 46.4 fL (36.4-46.3); Red Blood Count 3.73 M/uL (4.20-5.40); White Blood Count 8.82 K/ul (4.8-10.8)
[2024-08-07 09:04] LABS: Albumin Level 3.3 gm/dl (3.4-5.0); BUN Creatinine Ratio 27.8 (10-20); Bilirubin Direct 0.2 mg/dl (0-0.2); Bilirubin,Total 0.5 mg/dl (0.2-1.0); Calcium 8.4 mg/dl (8.6-10.3); Creatinine Clr Calc Pharmacy 114.9 ml/min; Magnesium 2.1 mg/dl (1.7-2.4); Potassium 3.7 mmol/L (3.5-5.1); Total Protein 6.3 gm/dl (6.0-8.3)
--- NOTE | 2024-08-07 09:27 | XRay Report ---
XR chest 1V portable CLINICAL HISTORY: f/u pulmonary edema COMPARISON STUDY: Chest radiograph August 06, 2015. FINDINGS: Lung volumes are normal. There is no consolidation. Minimal left basilar opacity favors ate lectasis. There is no pneumothorax or pleural effusion. Cardiac size is normal. Mediastinal contours are normal. Pulmonary vascular congestion has resolved. IMPRESSION: No acute cardiopulmonary findings. Resolution of pulmonary vascular congestion. ACT 112: Negative or not required by law. Electronically signed by: Pedrito Kennedy M.D. 08/07/2024 9:26 AM
--- NOTE | 2024-08-07 10:30 | Ultrasound Report ---
LEFT LOWER EXTREMITY VENOUS DOPPLER HISTORY: Acute pain and swelling of the left lower leg swelling, fam hx dvt, r/o dvt COMPARISON STUDY: 08/01/2006 FINDINGS: There is normal compressibility, flow, and augmentation within the left lower extremity amadou p venous system. IMPRESSION: No DVT within the left lower extremity. ACT 112: Negative or not required by law. Electronically signed by: Steve Manning M.D. 08/07/2024 10:29 AM
[2024-08-07] MEDS: POTASSIUM CHLORIDE CRTAB 20 MEQ TABCR PO STA (10:38)
[2024-08-07] MEDS: FUROSEMIDE INJ 20 MG/2 ML VIAL IV ONE (10:38)
--- NOTE | 2024-08-07 10:59 | Pharmacy Report ---
Pharmacy Glycemic Short Note 2 - Date of Service August 07, 2024 - Glycemic Short BSG Results (Last 24 hours): 08/06/24 08/06/24 08/06/24 11:38 16:39 20:55 Glucose POC Glucose 215 H 230 H 179 H 08/07/24 08/07/24 07:28 08:00 Glucose 165 H POC Glucose 166 H OUTPATIENT ANTIDIABETIC REGIMEN: * metformin 500 mg daily ASSESSMENT: 08/07 * Patient received total of 12 units of insulin yesterday * Fasting BSG 166 mg/dL - will hold basal again today, but will tighten novolog coverage * Could consider small dose of basal tomorrow AM if fasting BSG trends up 08/06 * 69 year old with uti/pyelonephritis on IV antibiotics. Pharmacy consulted for glycemic management. BSGs last evening>300, possibly related to infection. Diet ordered at dinner yesterday so no coverage for carbs given either as order without CR. Most recent A1c 6.9%. Will add in CR today. PLAN FOR INPATIENT GLYCEMIC CONTROL: * Hold outpatient oral diabetes medications * Basal insulin * Lantus - hold * Bolus insulin * NovoLog per scale ACHS or Q6hrs while NPO * Goal Range: Low 110 mg/dL - High 140 mg/dL * Correction Factor: 25 mg/dL/unit * Nutritional / Prandial insulin per carb ratio of 1 unit per 8 grams CHO consumed
[2024-08-07 12:02] LABS: D Dimer 2190 ug/L FEU (0-500)
[2024-08-07] MEDS: LISINOPRIL/HCTZ 20/12.5MG 1 TAB TAB PO SCH (12:38)
[2024-08-07] MEDS: LANTUS PER UNIT CHARGE SC SCH (12:39)
[2024-08-07] MEDS: bisacodyL 10 MG SUPP PR PRN (12:40)
--- NOTE | 2024-08-07 12:50 | Electrocardiogram Report ---
Test Reason : Blood Pressure : */* mmHG Vent. Rate : 109 BPM Atrial Rate : 109 BPM P-R Int : 152 ms QRS Dur : 90 ms QT Int : 340 ms P-R-T Axes : 27 58 65 degrees QTcB Int : 457 ms Sinus tachycardia Otherwise normal ECG When compared with ECG of 05-Aug-2024 14:29, No significant change was found Confirmed by Will Camacho ([id number]) on 08/07/2024 12:50:04 PM Referred By: REFERRED SELF Confirmed By: Will Camacho
[2024-08-07] MEDS: OPTIRAY 320 125ml IV ONE (14:09)
--- NOTE | 2024-08-07 14:58 | CT Scan Report ---
CT angio chest PE protocol CT DOSE: 939.68 mGy.cm HISTORY: 69 years-old Female with PE. Acute shortness of breath TECHNIQUE: Multiple CTA images of the chest were obtained after the intravenous administration of 119 ml Optiray. Coronal and sagittal MIPS were obtained from the axial data set and were submitted for review. All measurements were obtained according to NASCET criteria. A dose lowering technique was u tilized adhering to the principles of ALARA. COMPARISON: Duplex venous Doppler study and chest radiograph of same day FINDINGS: CTA: Heart is upper limits of normal in size. No pericardial effusion. No thoracic aortic aneurysm. No pul monary emboli identified. CT CHEST: 10 mm hypodense left thyroid nodule. No pathologically enlarged lymph nodes. No pneumothorax, pleural effusion, airspace consolidation or pulmonary edema. Mild linear subsegmental atelectasis versus sca rring in the left lower lobe. Central airways appear patent. Hepatomegaly with hepatic steatosis. Small left hepatic lobe cyst. The spleen also appears mildly enl arged. No acute fracture. IMPRESSION: 1. Unremarkable CTA of the chest. No pulmonary emboli identified. 2. Hepatomegaly with hepatic steatosis. ACT 112: Negative or not required by law. The above report was generated using voice recognition software. It may contain grammatical, syntax o r spelling errors. Electronically signed by: Steve Manning M.D. 08/07/2024 2:55 PM
--- NOTE | 2024-08-07 16:09 | XCELERA ---
[id number]
[2024-08-07] MEDS: METOPROLOL TARTRATE 25 MG TAB PO SCH (20:30)
[2024-08-07 20:56] VITALS: TEMP 98.2
[2024-08-08 06:46] LABS: Hematocrit (blood only) 32.3 % (37.0-47.0); Hemoglobin 11.2 g/dl (12.0-16.0); Mean Corpuscular Hemoglobin 30.9 pg (25.0-34.0); Mean Corpuscular Hgb Conc 34.7 g/dL (32.0-36.0); Mean Platelet Volume 10.3 fL (9.4-12.4); Platelet Count 297 K/uL (130-400); RDW Coefficient of Variation 14.1 % (11.5-14.5); RDW Standard Deviation 45.8 fL (36.4-46.3); Red Blood Count 3.63 M/uL (4.20-5.40); White Blood Count 6.88 K/ul (4.8-10.8)
[2024-08-08 07:02] LABS: Albumin Globulin Ratio 1.1 (0.9-2); Albumin Level 3.1 gm/dl (3.4-5.0); Bilirubin,Total 0.4 mg/dl (0.2-1.0); Calcium 8.4 mg/dl (8.6-10.3); Creatinine Clr Calc Pharmacy 121.4 ml/min; Globulin 2.8 gm/dl (2.5-4.0); Magnesium 2.2 mg/dl (1.7-2.4); Potassium 3.3 mmol/L (3.5-5.1); Total Protein 5.9 gm/dl (6.0-8.3)
[2024-08-08 07:17] LABS: Thyroid Stimulating Hormone 1.157 uIu/ml (0.300-4.500)
[2024-08-08 07:53] VITALS: BP 130/85; O2SAT 94
--- NOTE | 2024-08-08 08:21 | Hospitalist Progress Note ---
Date of Service August 08, 2024 Assessment & Plan (1) Sepsis: Plan: Patient is a 69-year-old female sent by PCP for evaluation for concerns for Sepsis/UTI w/ UTI symptoms including fever (temp 101F), dysuria and vaginal itching and back pain WBC 17.8k, HR to 120s (sinus tach). Lactic 1.6. Procal 0.15. Na 132 (corrected 136 for glucose 287), BUN/Cr 19/0.89. CXR negative CTAP findings compatible with cystitis and left-sided pyelonephritis, ureteritis and pyelitis, NO urolith or hydronephrosis, no bowel obstruction or bowel thickening, presence of hepatic steatosis s/p 2gm IV Ceftriaxone, 2L NSS and additional 2L for total 4L ordered on admission Blood cx + 1/2 bottles w/ ecoli --urine cx repeat pending but given +blood cx/CTAP findings and dysuria, suspected source Ceftriaxone IV continued WBC now wnl at 8.82k T 38C AM 08/06 but AFEBRILE SINCE THAT TIME HCTZ-lisinopril resumed, renal function stable Did have element of volume overload/hypoxia 08/06 w/ ongoing O2 requirements and SOB complaints. CXR obtained, pulm vascular congestion noted (got 4L IVF on admission) s/p Lasix 20mg IV, repeat dose for today given slight elevation in BNP w/ ongoing complaints and improvement in sx/titration to RA (however ongoing SOB w/ exertion) Lovenox SQ started for DVT proph given sepsis/bacteremia and ongoing inpatient stay however further discussion with patient reporting family hx unprovoked DVT/PEs and did have some LLE edema prior couple of weeks and given STACK complaints w/ LLE edema on exam (however pulses present), Doppler obtained LLE which was NEGATIVE. Sinus tachy on EKG 108bpm, ddimer added. ELEVATED --> CTA chest obtained which was NEGATIVE for PE (fatty liver noted) ?need for BB for HR control. ECHO ordered for eval underlying valvular disease/EF prior to starting such -- started metoprolol tartrate BID per discussion w/ supervising provider for rate control Monitor labs/exam on repeat PT/OT consults placed , rec for rehab (patient hoping to go home) 08/08 WBC wnl 6.8k, AFEBRILE since AM 08/06 Blood cultures Ecoli, awaiting sensitivities given urine cx repeat collection recommended and no growth on repeat not surprising as had already been on antibiotics. (2) UTI (urinary tract infection): Plan: Symptoms of dysuria, vaginal itching CTAP w/ cystitis/L sided pyelo and ureteritis, pyelitis, hepatic steatosis Urine cx w/ repeat collection recommended, pending --> prelim without growth but notable has been on abx. Likely able to dc on course FLQ pending blood cx/s (3) Pyelonephritis of left kidney: Plan: Identified on CTAP, +L CVA tenderness Abx as outlined, f/u urine/blood cx and sensitivities (4) Type 2 diabetes mellitus: Plan: No insulin at baseline . Most recent A1c 6.9 in May Home meds: metformin, on hold while inpatient BSG elevation on admission suspected 2nd to infection and made adjustments to SSI yesterday/consulted pharmacy and BSGs much improved/stable. (5) Moderate obstructive sleep apnea: Plan: CPAP to continued, noting patient did NOT use last 2 nights ENCOURAGED COMPLIANCE/ TO BRING, risk for afib w/ untreated SHIRA but EKGs w/ Sinus tachy/no afib. Mag/K replete Monitor/outpt f/u \ (6) Left leg swelling: Plan: slightly more swollen than the right. given family hx clots, doppler to be obtained. Lovenox SQ started this morning for chemoproph and doppler negative --> continue chemoproph for DVT prevention IMPROVED w/ lasix as above, ECHO pending given BNP elevation for further eval Plan HLD- Atorvastatin continued HTN- Lisinopril-HCTZ RESUMED. Lasix as outlined. Monitor for BB as above for HR control Mood- Duloxetine VTE prophylaxis: SCDs, added Lovenox SQ as above. Venous doppler NEGATIVE/CTA chest NEG for PE Dispo: PT/OT rec rehab, will continue to monitor w/ treatment. Continues Ceftriaxone/monitor cx sensitivities. Possible BB pending ECHO results Admission and Anticipated Discharge Date Admission Date: August 05, 2024 Results & Data Results & Data Vital Signs (Past 12 Hours) Vital Signs Temp Pulse Resp BP Pulse Ox O2 Del Method 08/08/24 07:52 36.8 C 89 18 130/85 94 Room Air 08/07/24 22:32 102 H 95 Room Air, CPAP 08/07/24 20:30 Room Air, CPAP PG Care Time/CCT Total # of Minutes Spent Total Time Spent with Patient: Total time spent is greater than 50% in coordination of care (as documented) at patient's floor/unit and/or counseling patient: Coding Diagnoses Sepsis A41.9 UTI (urinary tract infection) N39.0 Pyelonephritis of left kidney N12 Type 2 diabetes mellitus E11.9 Moderate obstructive sleep apnea G47.33 Left leg swelling M79.89
[2024-08-08] MEDS: LANTUS PER UNIT CHARGE SC SCH (08:25)
[2024-08-08] MEDS: POTASSIUM CHLORIDE CRTAB 20 MEQ TABCR PO STA (10:16)
--- NOTE | 2024-08-08 10:36 | Discharge Summary ---
Discharge Summary Date of Service August 08, 2024 Principal Dx & Hospital Course #1 = Principal Diagnosis (1) Sepsis: Patient is a 69-year-old female sent by PCP for evaluation for concerns for Sepsis/UTI w/ UTI symptoms including fever (temp 101F), dysuria and vaginal itching and back pain WBC 17.8k, HR to 120s (EKG w/ sinus tach). Lactic 1.6. Procal 0.15. Na 132 (corrected 136 for glucose 287) BUN/Cr 19/0.89. CXR negative CTAP findings compatible with cystitis and left-sided pyelonephritis, ureteritis and pyelitis, NO urolith or hydronephrosis, no bowel obstruction or bowel thickening, presence of hepatic steatosis s/p 2gm IV Ceftriaxone, 2L NSS and additional 2L (total 4L on admission) Blood/urine cx obtained and while urine cx recommended repeat collection and repeat negative as was already on antibiotics blood cultures with 1/4 bottles with ECOLI, pansensitive except ampicillin/unasyn and was continued on Ceftriaxone 2gm IV daily with improvement/normalization in WBC and no further fevers since 38C AM 08/06 and SIGNIFICANT improvement in exam with treatment as outlined and was discharged on CIPROFLOXACIN 500mg PO BID to complete 7 day course. Of note, did have ongoing need for 2L O2 following admission with reports of SOB and CXR obtained which noted pulmonary edema (suspected 2nd to IVF on admission) and given lasix 20mg IV which was repeated x 1 on 08/07 with improvement but ongoing SOB w/ exertion however HR elevated. Repeat EKG obtained which noted sinus tach. Reported family hx DVT/PE, venous doppler obtained for slight LLE edema which was negative but given +ddimer did complete CTA chest which was NEGATIVE for PE. ECHO obtained given BNP elevation MILD just above 100 and was without significant valvular disease but noted cLVH and started on metoprolol 25mg PO BID for HR/BP control with SIGNIFICANT improvement in breathing status and HRs much better controlled and discussed continuing this at discharge given improvement/resolution in symptoms and to monitor her BPs at home and continue her HCTZ-lisinopril for now but disuss w/ PCP in folllow up if needing reduction in this however has been stable on both and BP 130/85. ALso notable, patient on CPAP for SHIRA and while EKG noting sinus tach without afib reported she did not use overnight while inpatient despite encouragement in compliance/have family bring this in and is at increased risk for developing afib if not being adequately treated and alejandro benefit from obtaining report from her home CPAP to eval compliance/use at home and if not compliant could consider holter monitor for eval. TSH was checked for completeness and was WNL. Lovenox SQ was utilized for DVT proph given family hx/ongoing inpatient stay (again, doppler/CTA negative for PE) At discharge, CIPRO BID to complete course, metoprolol 25mg BID for HTN/HR control. F/u PCP (2) UTI (urinary tract infection): As above, urine ended up being reported as negative but given CTAP findings and blood cx results w/ resolution in sx w/ treatment above, suspect urinary source and abx as outlined (3) Pyelonephritis of left kidney: Identified on CTAP, +L CVA tenderness on admission and abx as outlined with RESOLUTION IN CVA tenderness Tx as outlined (4) Type 2 diabetes mellitus: No insulin at baseline . Most recent A1c 6.9 in May Home meds: metformin, held while inpatient BSG elevation on admission suspected 2nd to infection and made adjustments to SSI yesterday/consulted pharmacy and BSGs much improved/stable and to resume home metformin at sc (5) Moderate obstructive sleep apnea: CPAP to continued, noting patient did NOT use last 2 nights ENCOURAGED COMPLIANCE/ TO BRING, risk for afib w/ untreated SHIRA but EKGs w/ Sinus tachy/no afib. As above, rec continued compliance and consider checking CPAP record to ensure using and if not would STRONGLY encouraged increased use. No LAE/DALE noted on echo to suggest afib either but does note diastolic dysfunction grade I and again encourgae complaince F/u PCP (6) Left leg swelling: slightly more swollen than the right. given family hx clots, doppler obtained and was NEGATIVE. CTA also negative for PE and continued on Lovenox SQ for DVT proph. RESOLUTION in LE edema w/ lasix for volume overload from IVF provided on admission for 4L w/ HCTZ on hold which was resumed and continued at sc. Plan HLD- Atorvastatin continued HTN- Lisinopril-HCTZ RESUMED. Lasix as outlined and metoprolol 25mg PO BID added and continued as discussed PT/OT recs for rehab however w/ addition of BB for SOB symptoms from her HR w/ improvement and ambulating in the room to bathroom MUCH better and ok'd for dc home as desired. Outpt f/u PCP on CIPRO at sc, metoprolol for HR/BP control Notes For Next Care Provider F/u BP readings since addition of metoprolol for HR control. CTA negative for PE/doppler negative. Was given 4L IVF on admission and developed pulm edema following which improved with lasix IV x 2. ECHO w/o reduced EF/no significant valvular disease. BPs stable/IMPROVED since addition of BB to 130/85 and ambulating in room with improvement in symptoms and 94% on RA/wanting to go home. --Notable she declined CPAP while inpatient and would encourage compliance given untreated SHIRA can lead to AFIB and wanting to prevent that (no atrial enlargement on ECHO but does note diastolic dysfunction grade I) but does have moderate concentric LVH and suspect needing additional BP control at baseline Could consider holter monitor if needed to see if any underlying afib but EKGs w/ stable sinus tach. TSH was wnl . Consideration to reduce her HCTZ-lisinopril IF NEEDED however has been stable despite addition of metoprolol 25mg PO BID which has been continued. Medication Changes From Visit Ciprofloxacin 500mg PO BID to complete 7 day course for GN bacteremia Metoprolol tartrate 25mg PO BID -- 1mo rx given but further titration/ongoing use TBD in follow up. Admission HPI Per Admitting Provider Patient is a 69-year-old female presenting for UTI symptoms to include fever, dysuria, and vaginal itching. Was at outpatient appointment and referred to ED. ED course: CBC- WBC 17.80 with neutrophil predominance 14.38, RDW 47.7; PT/INR WNL; CMP- Na 132, chloride 97, BUN/creatinine 21.3, alk phos 106; lactate 1.6, procalcitonin 1.15; UA turbid appearance, specific gravity 1.035, 3+ protein, 2+ glucose, 1+ ketones, 3+ blood, positive nitrate, 1+ bilirubin, 2+ LE, and presence of WBC, HPC, hyaline cast, epithelial cells, and 4+ bacteria.; CXR no acute cardiopulmonary disease; CTAP findings compatible with cystitis and left- sided pyelonephritis, ureteritis and pyelitis, urolith or hydronephrosis, no bowel obstruction or bowel thickening, presence of hepatic steatosis. Patient tachycardic on arrival, but normotensive and without fever. Patient is a 69-year-old female with PMHx T2DM, SHIRA, thrombocytosis, migraine, fibromyalgia, hypertension, hyperlipidemia, and unstable gait presenting for onset of UTI symptoms to include dysuria and vaginal itching x 1 week. Has an associated headache, fever of Tmax 101 this morning, as well as very mild pain in low back pain that spans across both sides. States she has not had hematuria and nausea/vomiting. Has been utilizing Tylenol and Aleve [id number] to manage pain. States that this has not helped much. Has not taken a.m. medications. Never had this happen before. Please see Dr. Kathleen's attestation for adjustments/additions to treatment plan. Admission Exam Per Admitting Provider General: No acute distress Skin: Warm and dry Head: Normocephalic, atraumatic Eyes: PERRL Neck: Supple, no LAD Cardio: Tachycardia, regular rhythm, no M/G/R, S1 and S2 normal Resp: Chest wall symmetric, normal respiratory effort; Lungs CTA in all lobes bi laterally, no wheezes, rales, or rhonchi Abdomen: Soft, symmetric, nontender; no distention; No masses or hepatosplenomegaly; CVA tenderness L side MSK: No deformities; pulses palpable and equal; no edema. Neuro: Awake, alert; Psych: Appropriate mood and affect; good judgement and insight. present in room at time of visit. Discharge Exam General: 69 yo female ambulating back from the bathroom, MUCH improved, no significant SOB w/ exertion reported and HR in 80s on exam. 94% on RA and no further LE edema wanting to go home Head atraumatic, normocephalic, mmm, trachea midline Resp; even/unlabored, slightly diminished in the bases, no w/c/r, on room air CV: RRR, rates improved, no significant m/r/g, no further LE edema, calves nontender, pulses present GI: +BS, soft/slight suprapubic discomfort but no guarding/rigidity : no martinez, no further CVA tenderness MSK/Neuro: nonfocal, not confused, answering questions appropriately, moves all extremities, ambulating in the room without assistive device without issues Psych: AOx3, cooperative with exam Discharge Plan Discharge Items Patient Disposition: Home - Home Health Services Reason For Visit: SEPSIS, UTI, PYELO Discharge Diagnosis: Sepsis, Bacteremia, Pyelo (infection to kidneys) Goals: You have been hospitalized for an acute medical problem. During your stay at [facility], we have made an effort to correct the problem that brought you to the hospital while keeping you as comfortable as possible. Medications were used to bring your condition under control and your discharge instructions will include directions for any medications you should take after leaving the hospital. Please make sure you see your Primary Care Provider as part of your follow up plan. Activity: As commented below Non-emergency contact: Primary Care Provider Call non-emergency contact if: you have any medication questions, your symptoms worsen, your pain is not controlled and you have a fever Follow-up/Referrals: Arleth Lorenzo, [Primary Care Provider] - Diet: Carb Consistent or DM2 and Heart Healthy Addtl Attending Provider Instructions: You have been hospitalized and found to have bacteria in your blood which is suspected from urinary source given CT imaging. You were given IV antibiotics and are being sent home on CIPROFLOXACIN 500mg by mouth TWICE DAILY for another 3 days to complete the course. Please monitor for any significant increased diarrhea as discussed and alert primary care if this occurs as antibiotics can cause cdiff. We checked imaging for clots and were NEGATIVE. ECHO of the heart did NOT show any significant valvular issues. We have started you on a medication called metoprolol twice daily with improvement in your heart rate and stable blood pressures on this. Please continued this twice daily and keep a log of blood pressures at home to discuss with PCP in follow up if needing reduction in your other medication but have been stable on both and being continued on both. Please follow up with PCP in the next 7-10 days. Please return to the ER with any increased fevers/back pain/abdominal pain or for any other symptoms concerning for you. Take care! Pending Studies at Discharge: Yes Studies:: blood cultures -- ecoli on prelim after 48 hours (hinds sensitive except amp/unasyn) Urine cx repeat preliminary without growth Stand-Alone Forms: My [facility], Smoking Cessation Medications and DC Order Prescriptions: New metoprolol tartrate 25 mg Tablet 25 mg PO BID Qty: 60 0RF ciprofloxacin HCl 500 mg tablet 500 mg PO BID 3 Days Qty: 6 0RF Continued cholecalciferol (vitamin D3) [Vitamin D3] 125 mcg (5,000 unit) tablet 5,000 mcg PO QAM alendronate 70 mg tablet See Rx Instructions .ROUTE .COMPLEX Qty: 12 3RF Dose Instruction: TAKE 1 TABLET (70 MG) WEEKLY Rx Instructions: TAKE 1 TABLET (70 MG) WEEKLY metformin 500 mg tablet extended release 24 hr See Rx Instructions .ROUTE .COMPLEX Qty: 90 3RF Dose Instruction: TAKE 1 TABLET DAILY Patient Comments: qpm Rx Instructions: TAKE 1 TABLET DAILY atorvastatin 10 mg tablet See Rx Instructions .ROUTE .COMPLEX Qty: 90 3RF Dose Instruction: TAKE 1 TABLET DAILY Patient Comments: takes hs Rx Instructions: TAKE 1 TABLET DAILY lisinopril-hydrochlorothiazide 20-12.5 mg tablet See Rx Instructions .ROUTE .COMPLEX Qty: 90 3RF Dose Instruction: TAKE 1 TABLET DAILY Patient Comments: hs Rx Instructions: TAKE 1 TABLET DAILY duloxetine 30 mg capsule,delayed release(DR/EC) 30 mg PO DAILY Qty: 90 3RF magnesium 200 mg tablet 200 mg PO QAM icosapent ethyl [Vascepa] 1 gram capsule 2 g PO DAILY coQ10 (ubiquinol) 100 mg Capsule 100 mg PO QAM multivitamin Tablet 1 tab PO QAM calcium carbonate-vitamin D3 [Calcium 600 + D(3)] 600 mg(1,500mg) -200 unit Tablet 1 tab PO QAM flaxseed oil 1,000 mg Capsule 1,000 mg PO QAM No Action (DME) CPAP Machine Misc See Rx Instructions .ROUTE .MEDSUPPLY Qty: 1 0RF Rx Instructions: PLEASE DECREASE AUTO TITRATING CPAP SETTINGS TO 4-8CM WATER PRESSURE LENGTH OF NEED: 99 MONTHS DX: G47.33 Discharge Orders: Discharge Order (Routine); Ordered 08/08/24 Ordered By: India Faria Admission Data Admit Date/Time: 08/05/24 17:30 Attending Provider: Camilo Ronquillo Admit Provider: Christopher Kathleen Primary Care Provider: Arleth Lorenzo Other Providers: Christopher Kathleen Other Interventions: Discharge Summary Assessment (RN) Last Done: 08/08/24 14:45 Hospital Stay Data Consultations 08/05/24 16:46 ED Decision to Admit Stat Diagnostic Imagining Performed Chest X-Ray 08/05/24 14:23 EXAM: Radiograph of the Chest 1 View INDICATION: Sepsis. TECHNIQUE: Frontal view of the chest. COMPARISON: 03/08/2020 FINDINGS: Lungs and pleural spaces: Very minimal scarring left base unchanged. No consolidation or pulmonary edema. No pleural effusion or pneumothorax. Heart: Shape and configuration within normal limits allowing for technique. Mediastinum: Normal contour. Bones/joints: Degenerative changes noted throughout the spine. No acute osseous abnormality seen. Soft tissues: No abnormality noted. No radiopaque foreign body noted. Upper abdomen: No abnormality noted. IMPRESSION: No acute cardiopulmonary disease. ACT 112: Negative or not required by law. Electronically signed by Ngoc Roque 08-05-2024 4:17 PM Abdomen/Pelvis CT 08/05/24 14:[address] WITH IV CONTRAST CT DOSE: 1389.26 mGy.cm HISTORY: Acute lower abdominal pain with urinary tract infection and fever septic, LLQ pain, divertic, pyelo TECHNIQUE: Multiaxial CT images of the abdomen and pelvis were performed following the IV administration of 94 cc of Optiray, A dose lowering technique was utilized adhering to the principles of ALARA. COMPARISON STUDY: 01/14/2017 FINDINGS: Clear lung bases. No pneumoperitoneum. Unremarkable spleen, pancreas and adrenal glands. Cholecystectomy. Hepatomegaly with hepatic steatosis. Small left hepatic lobe cysts. Patent portal vein. Unremarkable right kidney. Striated nephrogram of the left kidney with perinephric stranding. There is still thickening of the renal collecting system and ureter on the left. No significant hydronephrosis. Urinary bladder wall thickening with partial distention. Atherosclerosis of the aorta. No lymphadenopathy. No bowel obstruction or bowel wall thickening. Normal appendix. No acute fracture. IMPRESSION: 1. Findings compatible with cystitis and left-sided pyelonephritis, ureteritis and pyelitis. 2. No urolith or hydronephrosis. 3. No bowel obstruction or bowel wall thickening. 4. Hepatic steatosis. ACT 112: Negative or not required by law. The above report was generated using voice recognition software. It may contain grammatical, syntax or spelling errors. Electronically signed by: Steve Manning M.D. 08/05/2024 4:27 PM Chest X-Ray 08/06/24 10:48 XR chest 1V portable CLINICAL HISTORY: hypoxia, eval pna vs atelectasis COMPARISON STUDY: Chest radiograph August 05, 2024. FINDINGS: Lung volumes are normal. Lungs are clear. There is no pneumothorax or pleural effusion. There is mild enlargement of the cardiac silhouette. Mediastinal contours are normal. There is pulmonary vascular congestion without overt pulmonary edema. IMPRESSION: Mild enlargement of the cardiac silhouette with pulmonary vascular congestion. ACT 112: Negative or not required by law. Electronically signed by: Pedrito Kennedy M.D. 08/06/2024 11:57 AM Venous Doppler Study 08/07/24 08:47 LEFT LOWER EXTREMITY VENOUS DOPPLER HISTORY: Acute pain and swelling of the left lower leg swelling, fam hx dvt, r/o dvt COMPARISON STUDY: 08/01/2006 FINDINGS: There is normal compressibility, flow, and augmentation within the left lower extremity deep venous system. IMPRESSION: No DVT within the left lower extremity. ACT 112: Negative or not required by law. Electronically signed by: Steve Manning M.D. 08/07/2024 10:29 AM Chest X-Ray 08/07/24 08:50 XR chest 1V portable CLINICAL HISTORY: f/u pulmonary edema COMPARISON STUDY: Chest radiograph August 06, 2015. FINDINGS: Lung volumes are normal. There is no consolidation. Minimal left basilar opacity favors atelectasis. There is no pneumothorax or pleural effusion. Cardiac size is normal. Mediastinal contours are normal. Pulmonary vascular congestion has resolved. IMPRESSION: No acute cardiopulmonary findings. Resolution of pulmonary vascular congestion. ACT 112: Negative or not required by law. Electronically signed by: Pedrito Kennedy M.D. 08/07/2024 9:26 AM Chest CTA 08/07/24 12:03 CT angio chest PE protocol CT DOSE: 939.68 mGy.cm HISTORY: 69 years-old Female with PE. Acute shortness of breath TECHNIQUE: Multiple CTA images of the chest were obtained after the intravenous administration of 119 ml Optiray. Coronal and sagittal MIPS were obtained from the axial data set and were submitted for review. All measurements were obtained according to NASCET criteria. A dose lowering technique was utilized adhering to the principles of ALARA. COMPARISON: Duplex venous Doppler study and chest radiograph of same day FINDINGS: CTA: Heart is upper limits of normal in size. No pericardial effusion. No thoracic aortic aneurysm. No pulmonary emboli identified. CT CHEST: 10 mm hypodense left thyroid nodule. No pathologically enlarged lymph nodes. No pneumothorax, pleural effusion, airspace consolidation or pulmonary edema. Mild linear subsegmental atelectasis versus scarring in the left lower lobe. Central airways appear patent. Hepatomegaly with hepatic steatosis. Small left hepatic lobe cyst. The spleen also appears mildly enlarged. No acute fracture. IMPRESSION: 1. Unremarkable CTA of the chest. No pulmonary emboli identified. 2. Hepatomegaly with hepatic steatosis. ACT 112: Negative or not required by law. The above report was generated using voice recognition software. It may contain grammatical, syntax or spelling errors. Electronically signed by: Steve Manning M.D. 08/07/2024 2:55 PM ECHOCARDIOGRAM 08/07/24 No prior study for comparison. Study was technically difficult. LV EF 65-70%. LV systolic function is NORMAL LV wall motion is normal. There is MODERATE concentric LVH Grade I diastolic dysfunction (abnormal relaxation pattern). RV is normal in size/function. NO SIGNIFICANT VALVULAR disease on technically limited doppler. Discharge Instructions Given to Patient (Per Discharging Provider) You have been hospitalized and found to have bacteria in your blood which is suspected from urinary source given CT imaging. You were given IV antibiotics and are being sent home on CIPROFLOXACIN 500mg by mouth TWICE DAILY for another 3 days to complete the course. Please monitor for any significant increased diarrhea as discussed and alert primary care if this occurs as antibiotics can cause cdiff. We checked imaging for clots and were NEGATIVE. ECHO of the heart did NOT show any significant valvular issues. We have started you on a medication called metoprolol twice daily with improvement in your heart rate and stable blood pressures on this. Please continued this twice daily and keep a log of blood pressures at home to discuss with PCP in follow up if needing reduction in your other medication but have been stable on both and being continued on both. Please follow up with PCP in the next 7-10 days. Please return to the ER with any increased fevers/back pain/abdominal pain or for any other symptoms concerning for you. Take care! Supervising Physician Co-Signing Physician Notes The patient was not seen by me. The chart was reviewed. Case discussed with BARON Dubon. Agree with assessment and plan Total Time Total Time Spent Total Time Spent (In Minutes): 45 Coding Level of Care Code 26822 INP/OBS DISCH >30 MIN Diagnoses Sepsis A41.9 UTI (urinary tract infection) N39.0 Pyelonephritis of left kidney N12 Type 2 diabetes mellitus E11.9 Moderate obstructive sleep apnea G47.33 Left leg swelling M79.89
[2024-08-08 14:46] VITALS: PULSE 90
== END 2024-08-08 16:19 | disposition home health service (06) | DRG 872 ==
LOC: ED 13:48 → SUATTDRO 17:30 → 3N 17:30